=== PATIENT | female | born 1980 | race Caucasian/White ===

== ENCOUNTER 2016-07-16 21:51 | Emergency (ER) | payer BC ==
[2016-07-16 22:05] VITALS: BP 119/83
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
--- NOTE | 2016-07-17 06:08 | CR ---
Chest: 2 views of the chest were obtained. Comparison: No previous chest x-ray. Nodular density is noted within the right mid chest. Lungs otherwise are clear but hyperinflated. Heart size and mediastinum are normal. Minimal scoliosis is noted within the spine. Impression: 1. Lungs are somewhat hyperinflated raising the possibility of asthma versus emphysematous change. Please correlate if patient is a smoker. 2. Nodular density within the right mid chest, noncontrast chest CT recommended to further evaluate. 3. Minimal scoliosis. Nothing acute is appreciated. Diagnostic code #9
--- NOTE | 2016-07-17 09:12 | CR ---
Lumbar spine: AP and lateral views of the lumbar spine were obtained. Comparison: No previous study. Slight posterior disc space narrowing throughout the lumbar spine is seen. Disc spaces otherwise are preserved. Vertebral body heights are maintained. Pedicles as well as transverse and spinous processes are intact. No subluxation or fracture is appreciated. Impression: 1. Minimal posterior disc space narrowing. Nothing acute is appreciated on two-view lumbar spine study. Diagnostic code #2
--- NOTE | 2016-07-17 09:12 | CR ---
Left hand: Four views of the left hand were obtained. Comparison: No previous study. Joint spaces are maintained. No fracture, dislocation or other bony abnormality is seen. Impression: 1. Nothing acute is appreciated on left hand exam. Diagnostic code #1
== END 2016-07-16 23:00 | disposition left against medical advice (07) ==
LOC: JD.ED 21:51
DX: S33.5XXA Sprain of ligaments of lumbar spine, initial encounter (principal); S60.222A Contusion of left hand, initial encounter; S20.212A Contusion of left front wall of thorax, initial encounter; F10.920 Alcohol use, unspecified with intoxication, uncomplicated; Y04.0XXA Assault by unarmed brawl or fight, initial encounter; Z79.899 Other long term (current) drug therapy; F17.210 Nicotine dependence, cigarettes, uncomplicated; Y90.1 Blood alcohol level of 20-39 mg/100 ml
CPT/HCPCS: 36415; 71020; 72100; 73130; 80053; 83690; 83735; 84703; 85025; 85610; 99285; G0480; 99282

== ENCOUNTER 2016-08-03 16:18 | Inpatient (IN) | payer BC ==
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
--- NOTE | 2016-08-03 17:42 | CT ---
Head CT Technique: Multiple axial sections through the brain were obtained. Comparison: No previous intracranial imaging. Findings: Ventricles along with basal cisterns and sulci over the convexities are within normal limits for the patient's age. No abnormal parenchymal densities are seen. No evidence of intracranial hemorrhage. No midline shift or mass effect is seen. Bone window settings were reviewed which shows slight mucosal thickening within the ethmoid sinuses. Other visualized sinuses are clear. No calvarial abnormality is seen. Impression: 1. Minimal sinus findings which are felt to be incidental. 2. Other portions of the noncontrast head CT study appear within normal limits for the patient's age. Diagnostic code #2
--- NOTE | 2016-08-03 20:06 | PCM.HP ---
H&P History of Present Illness - General Date of Service: 08/03/16 Source of Information: Patient, Old Records, Provider, RN Notes Reviewed History Limitations: Reports: Altered Mental Status, Intoxication - History of Present Illness Initial Comments - Free Text/Narative: This is a 36 yo white female with past medical hx/o Anxiety and Depression who was brought in by [facility] due to intoxication and combativeness per family' s request. Per ED notes, she not acting right and family states she is suicidal. Her left her about a week ago and took the kids along with him. Patient carries a hx/o excessive drinking. She also had recurrent falls perhaps due to intoxication. She has right yuki-orbital hematoma. En route to ED patient was combative but started relaxed and cooperate after she received 5mg mg IM haldol from EMS. Her initial work up in ED shows a fairly unremarkable CBC. Her chemistry is significant for Na 147, AG 17.8, BUN 3, Ca+ 8.1, and TSH 0.352. UA is negative for UTI. screening negative. Her UDS is negative. Her DMITRY is 0.45. Head CT scan report reads within normal limits for patient age. Patient is being admitted fro acute ETOH Intoxication and Combativeness. - Related Data Allergies/Adverse Reactions: Allergies Allergy/AdvReac Type Severity Reaction Status Date / Time No Known Allergies Allergy Verified 07/16/16 22:04 Home Medications: Home Meds Escitalopram [Lexapro] 10 mg PO DAILY 08/03/16 [History] Past Medical History Psychiatric History: Reports: Anxiety, Depression, Other (See Below) Social & Family History - Family History Family Medical History: Noncontributory - Tobacco Use Smoking Status *Q: Current Every Day Smoker Years of Tobacco use: 2 Packs/Tins Daily: 0.5 Used Tobacco, but Quit: No - Caffeine Use Caffeine Use: Reports: Coffee - Alcohol Use Days Per Week of Alcohol Use: 7 Number of Drinks Per Day: 16 Total Drinks Per Week: 112 Date of Last Drink: 08/03/16 Time of Last Drink: 12:00 - Recreational Drug Use Recreational Drug Use: No - Living Situation & Occupation Living situation: Reports: Occupation: Unemployed H&P Review of Systems - Review of Systems: Review Of Systems: See Below General: Denies: Fever, Chills, Malaise, Weakness, Fatigue HEENT: Reports: No Symptoms Pulmonary: Denies: Shortness of Breath Cardiovascular: Denies: Chest Pain, Palpitations, Dyspnea on Exertion, Edema Gastrointestinal: Reports: Diarrhea. Denies: Abdominal Pain, Anorexia, Constipation, Decreased Appetite, Nausea Genitourinary: Reports: No Symptoms Musculoskeletal: Reports: No Symptoms Skin: Denies: Cyanosis, Jaundice, Bruising, Rash, Erythema, Lesions Psychiatric: Reports: Depression, Anxiety. Denies: Confusion, Agitation, Hallucinations, Suicidal Ideation, Homicidal Ideation Neurological: Denies: Confusion, Difficulty Walking, Weakness, Gait Disturbance Hematologic/Lymphatic: Reports: No Symptoms Immunologic: Reports: No Symptoms Exam - Exam Exam: See Below - Vital Signs Vital Signs: Last Vital Signs Temp 36.5 C 08/03/16 16:42 Pulse 97 08/03/16 16:42 Resp 20 08/03/16 16:42 BP 109/77 08/03/16 16:42 Pulse Ox 98 08/03/16 16:42 Weight: 54.431 kg - Exam General: Alert, Cooperative HEENT: Conjunctiva Clear, Mucosa Moist & [place], Normal Nasal Septum, Posterior Pharynx Clear, Pupils Equal, Pupils Reactive, Other (mild right periorbital edema and echymosis; vision is intact) Neck: Supple, Trachea Midline, +2 Carotid Pulse wo Bruit Lungs: Clear to Auscultation, Normal Respiratory Effort Cardiovascular: Regular Rate, Regular Rhythm Abdomen: Normal Bowel Sounds, Soft. No: Organomegaly, Tenderness (Female) Exam: Deferred Rectal (Female) Exam: Deferred Back Exam: Normal Inspection, Decreased Range of Motion Extremities: Normal Inspection, Normal Pulses, Clubbing. No: Cyanosis, Calf Tenderness, Edema Peripheral Pulses: 3+: Posterior Tibial (L), Posterior Tibial (R), Dorsalis Pedis (L), Dorsalis Pedis (R) Skin: Warm, Dry, Intact Neuro Extensive - Mental Status: Oriented x3, Normal Cognition, Memory Intact Neuro Extensive - Motor, Sensory, Reflexes: CN II-XII Intact (limited but fairly intac), Abnormal Gait Psychiatric: Normal Affect, Normal Mood. No: Suicidal Ideation, Homicidal Ideation, Withdrawal Symptoms Physical Exam Comments:: Exam limited by intoxication - Patient Data Result Diagrams: 08/04/16 04:56 08/04/16 04:56 *Q Meaningful Use (ADM) - VTE *Q VTE Criteria *Q: - Stroke *Q Stroke Criteria *Q: - AMI *Q AMI Criteria *Q: Problem List Initiated/Reviewed/Updated: Yes Assessment/Plan Comment:: Assessment: Acute ETOH Intoxication - DMITRY 0.45 on admission - [facility] protocol - Ativan/Librium/Haldol/Seroquel/Benadryl - Hydralazine and IVP BB for HR/BP control - Ativan for Abortive Seizure and Withdrawal Symptoms - SAC consult Chronic ETOH Abuse - Hx/o excessive drinkin-24 packs a day - Had more reason to drinks after her children were taken away from her - [facility] protocol - SAC consult Anxiety and Depression - She denies being suicidal or homocidal - On Lexapro- appears to be inconsistently taking it - Psych Tele-consult Low TSH level - Likely has hyperthyroidism - She looks skinny - Will check FT4 - Defer outpatient for further testing Tobacco Dependence - Smokes 1ppd - Nicotine patch daily - Counseled on Smoking Cessation Plan: Admit to ICU IVF, MVI, Folic, Acid and Thiamine [facility] protocol TSH low, will check FT4 Ativan for Abortive Seizure PRN meds for Withdrawal Symptoms Aspiration/Seizure Precautions SW/CM d/c planning SA/Psych consult Code Status: 1
[2016-08-03] MEDS ORDERED: Acetaminophen/HYDROcodone 325-5 MG Tab PO PRN (20:23)
[2016-08-03] MEDS ORDERED: Bisacodyl 5 MG Tab PO PRN (20:23)
[2016-08-03] MEDS ORDERED: HYDROmorphone 1 MG/ML Syringe IVPUSH PRN (20:23)
[2016-08-03] MEDS ORDERED: Docusate Sodium 100 MG Cap PO PRN (20:23)
[2016-08-03] MEDS ORDERED: Ondansetron 4 MG/2 ML SDV IV PRN (20:23)
[2016-08-03] MEDS ORDERED: Promethazine 12.5 MG in Sodium Chloride 0.9% 50 ML IV PRN (20:23)
[2016-08-03] MEDS ORDERED: Albuterol/Ipratropium 3.0-0.5 MG/3 ML Neb Soln NEB PRN (20:23)
[2016-08-03] MEDS ORDERED: Acetaminophen 325 MG Tab PO PRN (20:23)
[2016-08-03] MEDS ORDERED: Polyethylene Glycol 3350 Powder 17 GM Packet PO PRN (20:23)
[2016-08-03] MEDS ORDERED: cloNIDine 0.1 MG Tab PO PRN (20:26)
[2016-08-03] MEDS ORDERED: Haloperidol Lactate 5 MG/ML SDV IM PRN (20:26)
[2016-08-03] MEDS ORDERED: Nicotine 21 MG/24 Hr Patch TRDERM PRN (20:26)
[2016-08-03] MEDS ORDERED: LORazepam 2 MG/ML MDV IVPUSH PRN (20:28)
[2016-08-03] MEDS ORDERED: Metoprolol Tartrate 5 MG/5 ML SDV IVPUSH PRN (20:28)
[2016-08-03] MEDS ORDERED: hydrALAZINE 20 MG/ML SDV IVPUSH PRN (20:28)
[2016-08-03] MEDS ORDERED: diphenhydrAMINE 50 MG/ML SDV IVPUSH PRN (20:30)
[2016-08-03] MEDS: Folic Acid 1 MG Tab PO SCH (20:52)
[2016-08-03] MEDS: QUEtiapine 25 MG Tab PO SCH (20:52)
[2016-08-03] MEDS: Famotidine 20 MG Tab PO SCH (20:52)
[2016-08-03] MEDS: chlordiazePOXIDE 25 MG Cap PO PRN (20:52)
[2016-08-03] MEDS: Thiamine 100 MG Tab PO SCH (20:52)
[2016-08-03] MEDS: Sodium Chloride 0.9% 1,000 ML IV SCH (20:55)
[2016-08-03] MEDS ORDERED: Multivitamins,Therapeutic Tab PO ONE (21:00)
[2016-08-03] MEDS: LORazepam 2 MG/ML MDV IVPUSH PRN (23:50)
[2016-08-04] MEDS: Sodium Chloride 0.9% 1,000 ML IV SCH ×3 (04:00→20:16)
--- NOTE | 2016-08-04 08:05 | PCM.PN ---
- General Info Date of Service: 08/04/16 Functional Status: Reports: pain controlled, tolerating diet, urinating. Denies : new symptoms - Review of Systems General: Denies: Fever, Weakness, Fatigue, Malaise HEENT: Reports: no symptoms Pulmonary: Denies: shortness of breath Cardiovascular: Denies: Chest Pain Gastrointestinal: Denies: Abdominal pain, Nausea, Vomiting Genitourinary: Reports: no symptoms Musculoskeletal: Reports: no symptoms Skin: Reports: bruising (around right eye) Neurological: Denies: Confusion, Numbness, Seizure, Tingling, Tremors, Difficulty Walking, Weakness Psychiatric: Denies: confusion, depression, anxiety, agitation, hallucinations, suicidal ideation Systems Review Comment:: No overnight or acute issues. CIWA score is 0-3 - Patient Data Vitals - most recent: Last Vital Signs Temp 36.6 C 08/04/16 04:00 Pulse 83 08/04/16 00:02 Resp 21 H 08/04/16 04:00 BP 88/53 L 08/04/16 04:00 Pulse Ox 92 L 08/04/16 00:02 Weight - most recent: 50.984 kg I&O - last 24 hours: Intake & Output 08/03/16 08/04/16 08/04/16 22:59 06:59 14:59 Intake Total 1500 1306 Output Total 1000 Balance 1500 1306 -1000 Lab Results last 24 hrs: Laboratory Results - last 24 hr 08/04/16 08/04/16 Range/Units 04:56 04:56 WBC 7.31 (3.98-10.04) K/mm3 RBC 4.22 (3.98-5.22) M/mm3 Hgb 13.2 (11.2-15.7) gm/L Hct 41.1 (34.1-44.9) % MCV 97.4 H (79.4-94.8) fl MCH 31.3 (25.6-32.2) pg MCHC 32.1 L (32.2-35.5) g/dl RDW Std Deviation 46.0 (36.4-46.3) fL Plt Count 140 L (182-369) K/mm3 MPV 9.5 (9.4-12.3) fl Neut % (Auto) 66.7 (34.0-71.1) % Lymph % (Auto) 26.8 (19.3-51.7) % [place] % (Auto) 4.8 (4.7-12.5) % Eos % (Auto) 1.0 (0.7-5.8) Baso % (Auto) 0.4 (0.1-1.2) % Neut # (Auto) 4.88 (1.56-6.13) K/mm3 Lymph # (Auto) 1.96 (1.18-3.74) K/mm3 [place] # (Auto) 0.35 (0.24-0.36) K/mm3 Eos # (Auto) 0.07 (0.04-0.36) K/mm3 Baso # (Auto) 0.03 (0.01-0.08) K/mm3 Sodium 142 (136-145) mEq/L Potassium 3.6 (3.5-5.1) mEq/L Chloride 105 (98-107) mEq/L Carbon Dioxide 22 (21-32) mEq/L Anion Gap 18.6 H (5-15) BUN 13 (7-18) mg/dL Creatinine 0.6 (0.55-1.02) mg/dL Est Cr Clr Drug Dosing 104.33 mL/min Estimated GFR (MDRD) > 60 (>60) mL/min BUN/Creatinine Ratio 21.7 H (14-18) Glucose 50 L (74-106) mg/dL Calcium 7.7 L (8.5-10.1) mg/dL Magnesium 1.8 (1.8-2.4) mg/dl Med Orders - Current: Current Medications Acetaminophen (Tylenol) 650 mg PO Q4H PRN PRN Reason: Pain (Mild 1-3)/fever Hydrocodone Bitart/Acetaminophen ([place] 325-5 Mg) 1 tab PO Q4H PRN PRN Reason: Pain (moderate 4-6) Albuterol/Ipratropium (Duoneb 3.0-0.5 Mg/3 Ml) 3 ml NEB Q4H PRN PRN Reason: Shortness Of Breath/wheezing Bisacodyl (Dulcolax) 5 mg PO DAILY PRN PRN Reason: Constipation Chlordiazepoxide HCl (Librium) 25 mg PO Q8H PRN PRN Reason: Withdrawal Symptoms Last Admin: 08/03/16 20:52 Dose: 25 mg Citalopram Hydrobromide (Celexa) 20 mg PO DAILY [facility] Clonidine HCl (Catapres) 0.1 mg PO Q4H PRN PRN Reason: Agitation Last Admin: 08/03/16 20:52 Dose: 0.1 mg Diphenhydramine HCl (Benadryl) 25 mg IVPUSH BEDTIME PRN PRN Reason: Insomnia Last Admin: 08/03/16 20:53 Dose: 25 mg Docusate Sodium (Colace) 100 mg PO BID PRN PRN Reason: Constipation Enoxaparin Sodium (Lovenox) 30 mg SUBCUT DAILY [facility] Famotidine (Pepcid) 20 mg PO Q12H [facility] Last Admin: 08/03/16 20:52 Dose: 20 mg Folic Acid (Folic Acid) 1 mg PO DAILY [facility] Stop: 08/05/16 09:01 Last Admin: 08/03/16 20:52 Dose: 1 mg Haloperidol Lactate (Haldol) 2 mg IM Q4H PRN PRN Reason: Other Hydralazine HCl (Apresoline) 20 mg IVPUSH Q4H PRN PRN Reason: Hypertension Hydromorphone HCl (Dilaudid) 0.25 mg IVPUSH Q2H PRN PRN Reason: Pain (severe 7-10) Promethazine HCl 12.5 mg/ (Sodium Chloride) 50.5 mls @ 100 mls/hr IV Q6H PRN PRN Reason: Nausea/Vomiting Sodium Chloride (Normal Saline) 1,000 mls @ 125 mls/hr IV ASDIRECTED [facility] Last Admin: 08/04/16 04:00 Dose: 125 mls/hr Lorazepam (Ativan) 2 mg IVPUSH Q4H PRN PRN Reason: Seizures Lorazepam (Ativan) 0 mg IVPUSH Q4H PRN; Protocol PRN Reason: Withdrawal Symptoms Last Admin: 08/03/16 23:50 Dose: 1 mg Magnesium Sulfate (Pharmacy To Dose - Magnesium Replacement) 1 dose .XX ASDIRECTED [facility] Metoprolol Tartrate (Lopressor) 5 mg IVPUSH Q4H PRN PRN Reason: Tachycardia Nicotine (Habitrol) 21 mg TRDERM DAILY PRN PRN Reason: Other Ondansetron HCl (Zofran) 4 mg IV Q6H PRN PRN Reason: Nausea/Vomiting Polyethylene Glycol (Miralax) 17 gm PO DAILY PRN PRN Reason: Constipation Potassium Chloride (Pharmacy To Dose - Potassium Replacement) 1 dose .XX ASDIRECTED [facility] Quetiapine Fumarate (Seroquel) 25 mg PO BID [facility] Last Admin: 08/03/16 20:52 Dose: 25 mg Senna/Docusate Sodium (Senna Plus) 1 tab PO BID PRN PRN Reason: Constipation Thiamine HCl (Vitamin B-1) 100 mg PO DAILY [facility] Last Admin: 08/03/16 20:52 Dose: 100 mg Discontinued Medications Multivitamins (Thera) 1 each PO ONETIME ONE Stop: 08/03/16 21:01 Last Admin: 08/03/16 20:52 Dose: 1 each - Exam General: alert, oriented, cooperative, no acute distress HEENT: Pupils equal, Pupils reactive, EOMI, Mucous membr. moist/pink Neck: supple, trachea midline, no JVD Lungs: Clear to auscultation, Normal respiratory effort Cardiovascular: Regular Rate, Regular Rhythm Abdomen: bowel sounds present, soft, no tenderness, no distension (Female) Exam: Deferred Back Exam: Normal Inspection, Decreased Range of Motion Extremities: no edema, normal pulses, no tenderness/swelling, no clubbing, no cyanosis, no calf tenderness Peripheral Pulses: 3+: Posterior Tibial (L), Posterior Tibial (R), Dorsalis Pedis (L), Dorsalis Pedis (R) Skin: warm, dry, intact Neurological: no new focal deficit Psy/Mental Status: alert, normal affect, normal mood - Problem List Review Problem List Initiated/Reviewed/Updated: Yes - My Orders Last 24 Hours: My Active Orders 08/03/16 20:23 Height and Weight [RC] 04 Intake and Output [RC] 04,16 Oxygen Therapy [RC] PRN Up With Assistance [RC] ASDIRECTED Up ad Allie [RC] ASDIRECTED VTE/DVT Education [RC] PER UNIT ROUTINE Vital Signs [RC] Q4HR Acetaminophen [Tylenol] 650 mg PO Q4H PRN Acetaminophen/HYDROcodone [[place] 325-5 MG] 1 tab PO Q4H PRN Albuterol/Ipratropium [DuoNeb 3.0-0.5 MG/3 ML] 3 ml NEB Q4H PRN Bisacodyl [Dulcolax] 5 mg PO DAILY PRN Docusate Sodium [Colace] 100 mg PO BID PRN Docusate Sodium/Sennosides [Senna Plus] 1 tab PO BID PRN HYDROmorphone [Dilaudid] 0.25 mg IVPUSH Q2H PRN Ondansetron [Zofran] 4 mg IV Q6H PRN Polyethylene Glycol 3350 [MiraLAX] 17 gm PO DAILY PRN Promethazine [Phenergan] 12.5 mg Sodium Chloride 0.9% [Normal Saline] 50 ml IV Q6H Resuscitation Status Routine 08/03/16 20:24 RT Aerosol Therapy [RC] ASDIRECTED 08/03/16 20:25 Notify Provider Consults [RC] ASDIRECTED Consult to Case Management [CONS] Routine Consult to Physician [CONS] Routine Consult to Adoption Services Manager [CONS] Routine Consult to Spiritual Care [CONS] Routine 08/03/16 20:26 CIWAA Assessment [RC] Q15M CIWAA Assessment [RC] Q1HR CIWAA Assessment [RC] Q30M CIWAA Assessment [RC] Q4H Notify Provider [RC] PRN Haloperidol Lactate [Haldol] 2 mg IM Q4H PRN Nicotine [Habitrol] 21 mg TRDERM DAILY PRN chlordiazePOXIDE [Librium] 25 mg PO Q8H PRN cloNIDine [Catapres] 0.1 mg PO Q4H PRN 08/03/16 20:28 LORazepam [Ativan] 2 mg IVPUSH Q4H PRN Metoprolol Tartrate [Lopressor] 5 mg IVPUSH Q4H PRN hydrALAZINE [Apresoline] 20 mg IVPUSH Q4H PRN 08/03/16 20:29 LORazepam [Ativan] See Protocol IVPUSH Q4H PRN 08/03/16 20:30 Magnesium Rep Pharmacy to Dose [Pharmacy to Dose - Magnesium Replacement] 1 dose .XX ASDIRECTED Potassium Rep Pharmacy to Dose [Pharmacy to Dose - Potassium Replacement] 1 dose .XX ASDIRECTED Sodium Chloride 0.9% [Normal Saline] 1,000 ml IV ASDIRECTED diphenhydrAMINE [Benadryl] 25 mg IVPUSH BEDTIME PRN 08/03/16 21:00 Famotidine [Pepcid] 20 mg PO Q12H Folic Acid 1 mg PO DAILY [facility]tiapine [SEROquel] 25 mg PO BID Thiamine [Vitamin B-1] 100 mg PO DAILY 08/03/16 21:27 Seizure Precautions [OM.PC] Routine 08/03/16 Dinner Regular Diet [DIET] 08/04/16 09:00 Citalopram [Celexa] 20 mg PO DAILY Enoxaparin [Lovenox] 30 mg SUBCUT DAILY 08/05/16 05:11 BASIC METABOLIC PANEL,BMP [CHEM] AM CBC WITH AUTO DIFF [HEME] AM MAGNESIUM [CHEM] AM 08/06/16 05:11 BASIC METABOLIC PANEL,BMP [CHEM] AM CBC WITH AUTO DIFF [HEME] AM MAGNESIUM [CHEM] AM 08/07/16 05:11 BASIC METABOLIC PANEL,BMP [CHEM] AM CBC WITH AUTO DIFF [HEME] AM MAGNESIUM [CHEM] AM - Plan Plan:: Assessment: Acute ETOH Intoxication - DMITRY 0.45 on admission - [facility] protocol: CIWA score si 0-3 - Ativan/Librium/Haldol/Seroquel/Benadryl - Hydralazine and IVP BB for HR/BP control - Ativan for Abortive Seizure and Withdrawal Symptoms Chronic ETOH Abuse - Hx/o excessive drinkin-24 packs a day - Had more reason to drinks after her children were taken away from her - [facility] protocol - Awaiting SAC input Anxiety and Depression - She denies being suicidal or homocidal - On Lexapro- appears to be inconsistently taking it - Awaiting Psych Tele input Low TSH level - Likely has hyperthyroidism - She looks skinny - FT4 is pending - Defer outpatient for further testing Tobacco Dependence - Smokes 1ppd - Nicotine patch daily - Counseled on Smoking Cessation Plan: She is clinically stable and looks much better Continue IVF, MVI, Folic, Acid and Thiamine CIWA protocol FT4 level pending Ativan for Abortive Seizure PRN meds for Withdrawal Symptoms Aspiration/Seizure Precautions SW/CM d/c planning Awaiting SA/Psych consult Code Status: 1
[2016-08-04] MEDS: chlordiazePOXIDE 25 MG Cap PO PRN (08:41)
[2016-08-04] MEDS: Folic Acid 1 MG Tab PO SCH (08:41)
[2016-08-04] MEDS: Citalopram 20 MG Tab PO SCH (08:41)
[2016-08-04] MEDS: QUEtiapine 25 MG Tab PO SCH ×2 (08:41→20:58)
[2016-08-04] MEDS: Thiamine 100 MG Tab PO SCH (08:41)
[2016-08-04] MEDS: Famotidine 20 MG Tab PO SCH ×2 (08:41→20:57)
[2016-08-04] MEDS: Enoxaparin 30 MG/0.3 ML Syringe SUBCUT SCH (08:42)
[2016-08-04] MEDS ORDERED: HYDROmorphone 0.5 MG/0.5 ML Syringe IVPUSH PRN (10:02)
[2016-08-04] MEDS: Magnesium Oxide 400 MG Tab PO SCH ×2 (11:15→20:59)
[2016-08-04] MEDS ORDERED: Morphine 2 MG/ML Syringe IVPUSH ONE (15:15)
[2016-08-04] MEDS: LORazepam 2 MG/ML MDV IVPUSH PRN (22:50)
[2016-08-05] MEDS: chlordiazePOXIDE 25 MG Cap PO PRN (08:15)
[2016-08-05] MEDS: Thiamine 100 MG Tab PO SCH (08:15)
[2016-08-05] MEDS: Citalopram 20 MG Tab PO SCH (08:15)
[2016-08-05] MEDS: Enoxaparin 30 MG/0.3 ML Syringe SUBCUT SCH (08:15)
[2016-08-05] MEDS: Famotidine 20 MG Tab PO SCH ×2 (08:15→21:40)
[2016-08-05] MEDS: Folic Acid 1 MG Tab PO SCH (08:15)
[2016-08-05] MEDS: QUEtiapine 25 MG Tab PO SCH ×2 (08:15→21:41)
[2016-08-05] MEDS ORDERED: Magnesium Sulfate/Water 2 GM in Premix Bag 1 BAG IV ONE (09:33)
--- NOTE | 2016-08-05 09:35 | PCM.PN ---
- General Info Date of Service: 08/05/16 Functional Status: Reports: tolerating diet (advanced to clear liquids), ambulating, urinating - Review of Systems General: Reports: No Symptoms HEENT: Reports: no symptoms Pulmonary: Reports: no symptoms Cardiovascular: Reports: No Symptoms Gastrointestinal: Reports: No symptoms Genitourinary: Reports: no symptoms Musculoskeletal: Reports: no symptoms Skin: Reports: no symptoms Neurological: Reports: No Symptoms Psychiatric: Reports: no symptoms - Patient Data Vitals - most recent: Last Vital Signs Temp 36.6 C 08/05/16 08:00 Pulse 65 08/05/16 07:00 Resp 18 08/05/16 08:00 BP 122/93 H 08/05/16 08:00 Pulse Ox 99 08/05/16 08:00 Weight - most recent: 52.34 kg I&O - last 24 hours: Intake & Output 08/04/16 08/05/16 08/05/16 22:59 06:59 14:59 Intake Total 420 2144 600 Balance 420 2144 600 Lab Results last 24 hrs: Laboratory Results - last 24 hr 08/04/16 08/05/16 08/05/16 Range/Units 04:56 04:36 04:36 WBC 4.00 (3.98-10.04) K/mm3 RBC 3.57 L (3.98-5.22) M/mm3 Hgb 11.1 L (11.2-15.7) gm/L Hct 35.0 (34.1-44.9) % MCV 98.0 H (79.4-94.8) fl MCH 31.1 (25.6-32.2) pg MCHC 31.7 L (32.2-35.5) g/dl RDW Std Deviation 45.1 (36.4-46.3) fL Plt Count 113 L (182-369) K/mm3 MPV 9.4 (9.4-12.3) fl Neut % (Auto) 51.1 (34.0-71.1) % Lymph % (Auto) 36.3 (19.3-51.7) % [place] % (Auto) 8.8 (4.7-12.5) % Eos % (Auto) 3.0 (0.7-5.8) Baso % (Auto) 0.5 (0.1-1.2) % Neut # (Auto) 2.05 (1.56-6.13) K/mm3 Lymph # (Auto) 1.45 (1.18-3.74) K/mm3 [place] # (Auto) 0.35 (0.24-0.36) K/mm3 Eos # (Auto) 0.12 (0.04-0.36) K/mm3 Baso # (Auto) 0.02 (0.01-0.08) K/mm3 Sodium 141 (136-145) mEq/L Potassium 4.0 (3.5-5.1) mEq/L Chloride 107 (98-107) mEq/L Carbon Dioxide 26 (21-32) mEq/L Anion Gap 12.0 (5-15) BUN 8 (7-18) mg/dL Creatinine 0.5 L (0.55-1.02) mg/dL Est Cr Clr Drug Dosing 128.52 mL/min Estimated GFR (MDRD) > 60 (>60) mL/min BUN/Creatinine Ratio 16.0 (14-18) Glucose 90 (74-106) mg/dL Calcium 8.1 L (8.5-10.1) mg/dL Magnesium 1.7 L (1.8-2.4) mg/dl Free T4 0.89 (0.76-1.46) ng/dL Med Orders - Current: Current Medications Acetaminophen (Tylenol) 650 mg PO Q4H PRN PRN Reason: Pain (Mild 1-3)/fever Hydrocodone Bitart/Acetaminophen ([place] 325-5 Mg) 1 tab PO Q4H PRN PRN Reason: Pain (moderate 4-6) Albuterol/Ipratropium (Duoneb 3.0-0.5 Mg/3 Ml) 3 ml NEB Q4H PRN PRN Reason: Shortness Of Breath/wheezing Bisacodyl (Dulcolax) 5 mg PO DAILY PRN PRN Reason: Constipation Chlordiazepoxide HCl (Librium) 25 mg PO Q8H PRN PRN Reason: Withdrawal Symptoms Last Admin: 08/05/16 08:15 Dose: 25 mg Citalopram Hydrobromide (Celexa) 20 mg PO DAILY [facility] Last Admin: 08/05/16 08:15 Dose: 20 mg Clonidine HCl (Catapres) 0.1 mg PO Q4H PRN PRN Reason: Agitation Last Admin: 08/03/16 20:52 Dose: 0.1 mg Diphenhydramine HCl (Benadryl) 25 mg IVPUSH BEDTIME PRN PRN Reason: Insomnia Last Admin: 08/03/16 20:53 Dose: 25 mg Docusate Sodium (Colace) 100 mg PO BID PRN PRN Reason: Constipation Enoxaparin Sodium (Lovenox) 40 mg SUBCUT DAILY [facility] Famotidine (Pepcid) 20 mg PO Q12H [facility] Last Admin: 08/05/16 08:15 Dose: 20 mg Haloperidol Lactate (Haldol) 2 mg IM Q4H PRN PRN Reason: Other Hydralazine HCl (Apresoline) 20 mg IVPUSH Q4H PRN PRN Reason: Hypertension Hydromorphone HCl (Dilaudid) 0.25 mg IVPUSH Q2H PRN PRN Reason: Pain (severe 7-10) Promethazine HCl 12.5 mg/ (Sodium Chloride) 50.5 mls @ 100 mls/hr IV Q6H PRN PRN Reason: Nausea/Vomiting Sodium Chloride (Normal Saline) 1,000 mls @ 125 mls/hr IV ASDIRECTED [facility] Last Admin: 08/04/16 20:16 Dose: 125 mls/hr Magnesium Sulfate 2 gm/ Premix 50 mls @ 25 mls/hr IV ONETIME ONE Stop: 08/05/16 11:32 Lorazepam (Ativan) 2 mg IVPUSH Q4H PRN PRN Reason: Seizures Lorazepam (Ativan) 0 mg IVPUSH Q4H PRN; Protocol PRN Reason: Withdrawal Symptoms Last Admin: 08/04/16 22:50 Dose: 2 mg Magnesium Sulfate (Pharmacy To Dose - Magnesium Replacement) 0 dose .XX ASDIRECTED PRN PRN Reason: RX TO MONITOR MAG LEVELS Metoprolol Tartrate (Lopressor) 5 mg IVPUSH Q4H PRN PRN Reason: Tachycardia Nicotine (Habitrol) 21 mg TRDERM DAILY PRN PRN Reason: Other Ondansetron HCl (Zofran) 4 mg IV Q6H PRN PRN Reason: Nausea/Vomiting Polyethylene Glycol (Miralax) 17 gm PO DAILY PRN PRN Reason: Constipation Potassium Chloride (Pharmacy To Dose - Potassium Replacement) 0 dose .XX ASDIRECTED PRN PRN Reason: RX TO MONITOR K LEVELS Quetiapine Fumarate (Seroquel) 25 mg PO BID [facility] Last Admin: 08/05/16 08:15 Dose: 25 mg Senna/Docusate Sodium (Senna Plus) 1 tab PO BID PRN PRN Reason: Constipation Thiamine HCl (Vitamin B-1) 100 mg PO DAILY [facility] Last Admin: 08/05/16 08:15 Dose: 100 mg Discontinued Medications Enoxaparin Sodium (Lovenox) 30 mg SUBCUT DAILY [facility] Last Admin: 08/05/16 08:15 Dose: 30 mg Folic Acid (Folic Acid) 1 mg PO DAILY [facility] Stop: 08/05/16 09:01 Last Admin: 08/05/16 08:15 Dose: 1 mg Hydromorphone HCl (Dilaudid) 0.25 mg IVPUSH Q2H PRN PRN Reason: Pain (severe 7-10) Magnesium Oxide (Magnesium Oxide) 400 mg PO BID@1200,2100 [facility] Stop: 08/04/16 21:01 Last Admin: 08/04/16 20:59 Dose: 400 mg Multivitamins (Thera) 1 each PO ONETIME ONE Stop: 08/03/16 21:01 Last Admin: 08/03/16 20:52 Dose: 1 each - Exam Quality Assessment: DVT prophylaxis General: alert, oriented, no acute distress HEENT: Pupils equal, Pupils reactive, EOMI Neck: supple, trachea midline Lungs: Normal respiratory effort Cardiovascular: Regular Rate, Tachycardia Abdomen: bowel sounds present, soft, no tenderness, no distension (Female) Exam: Deferred Back Exam: Normal Inspection Extremities: normal pulses Skin: warm Neurological: no new focal deficit Psy/Mental Status: alert, anxious - Problem List Review Problem List Initiated/Reviewed/Updated: Yes - My Orders Last 24 Hours: My Active Orders 08/05/16 09:33 Magnesium Sulfate/Water [Magnesium Sulfate 2 GM in Water 50 ML] 2 gm Premix Bag 1 bag IV ONETIME - Plan Plan:: Assessment: Acute ETOH Intoxication - DMITRY 0.45 on admission - CIWA protocol: CIWA score si 0-3 - Ativan/Librium/Haldol/Seroquel/Benadryl - Hydralazine and IVP BB for HR/BP control - Ativan for Abortive Seizure and Withdrawal Symptoms Chronic ETOH Abuse - Hx/o excessive drinkin-24 packs a day - Had more reason to drinks after her children were taken away from her - [facility] protocol - SHANNON and JOSE working on placement pre holiday weekend. Spoke with at bedside and later before he left. He requested that Deirdre Askew speak with him regarding his spouse; he is concerned about her DC and prefers OP therapy. and spouse both expect to meet an artificial DC date , Saturday-August 07, 2016. The patient has a [facility] meeting that she wants to attend. Explained that the plan is ongoing for placement, IP is the preferred route; the patient is at a risk of treatment failure and may harm herself or others. Anxiety and Depression - She denies being suicidal or homocidal; has had recent unsuccessful therapy. - On Lexapro- appears to be inconsistently taking it - Psych Tele input Low TSH level - Likely has hyperthyroidism - She looks skinny - FT4 is pending - Defer outpatient for further testing Tobacco Dependence - Smokes 1ppd - Nicotine patch daily - Counseled on Smoking Cessation Plan: She is clinically stable and looks much better; was moved to [place] telemetry Continue IVF, MVI, Folic, Acid and Thiamine [facility] protocol FT4 level pending Ativan for Abortive Seizure PRN meds for Withdrawal Symptoms Aspiration/Seizure Precautions SW/CM d/c planning Awaiting SA/Psych consult Code Status: 1
[2016-08-05] MEDS: Enoxaparin 40 MG/0.4 ML Syringe SUBCUT SCH (10:10)
--- NOTE | 2016-08-05 10:51 | CONS ---
CONSULTING PHYSICIAN: Ildefonso Dahl MD DATE OF CONSULTATION: 08/04/2016 This is a 60-minute inpatient clinical event. IDENTIFICATION: The patient is a 36-year-old female, who was admitted to the inpatient medical intensive care unit at [facility] in [place], [place]. She was admitted on 08/03/2016. She is seen for psychiatric evaluation today. CHIEF COMPLAINT: "I was on an alcoholic rampage." HISTORY OF PRESENT ILLNESS: The patient is a 36-year-old female, who reports that she has been drinking heavily and it got to the point where she needed to be hospitalized. She states that she "does not remember" how much she was drinking, but she notes that "I am looking to stop drinking" going forward. She states her drinking alcohol has been a problem "for about the last 5 years." She does report two chemical dependency treatments in the past and she states her longest sobriety from using alcohol was for "about 4 months back in 2014 after treatment." She does state that she is depressed at this point in time. She notes that she has been on Wellbutrin in the past and that this medication helped. She states that she has been on Prozac in the past and she had a very bad reaction from this medication. Currently, according to staff, the patient is on Seroquel and Celexa, but the patient is not recollecting that she is on these medications at this point in time. She denies that she is suicidal or homicidal. She denies any psychotic, delusional, or paranoid symptoms complicating the clinical picture. She denies any illicit substances complicating her clinical picture. She does want to go to treatment at this point in time once she is medically stable. MEDICATIONS: At the time of presentation. 1. Seroquel 25 mg b.i.d. 2. Celexa 30 mg daily. 3. Librium. 4. CIWA protocol. ALLERGIES: No known drug allergies. PAST MEDICAL HISTORY: The patient denies. REVIEW OF SYSTEMS: Negative at this point in time for any acute difficulties or complications currently with her GI, , pulmonary, cardiac, endocrine, blood, immune, skin, musculoskeletal, or nervous systems. FAMILY, PSYCHIATRIC, AND CD HISTORY: The patient reports mother had a history of alcoholism and she does state her drinks pretty heavily as well. PAST PSYCHIATRIC AND CD HISTORY: The patient reports one psychiatric hospitalization in 2015, two chemical dependency treatments in the past at [facility]. Again, longest sobriety is for 4 months. She is not sure how much she is drinking, but she does state it is pretty heavy. Denies any previous suicide attempts or self-injurious behaviors. Has a past psychiatric diagnosis of anxiety and depression. PAST PSYCHIATRIC MEDICATION HISTORY: Includes Wellbutrin, which helped her; Prozac, which the patient had a bad reaction from. She has gone to in the past. Dr. Paradise Galeas is her primary provider out at [facility]. SOCIAL HISTORY: The patient was born in [place], raised in [place], [place] and in [facility]. She currently lives in [place], [place] with her family. She has been x1 for 10 years. She has 2 children from the marriage. 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 She has been living in [place] with her family for about 5 years. Denies any prior service or any current legal difficulties. She is Taoist in terms of her tisha formation. MENTAL STATUS EXAMINATION: The patient is a 36-year-old white female in no apparent distress. Speech is of regular rate and rhythm. The patient is cognitively oriented x3. Psychomotor activity is within normal limits. There is no abnormal motor movements or tics observed. Gait and station are not observed. This patient is lying in the bed during the inpatient consult. Mood is depressed. Affect is consistent with stated mood, restrictive but cooperative overall for the purposes of the inpatient psychiatric consult. Tired-appearing. There is no behavioral or stated evidence of acute suicidal or homicidal ideation. No acute psychotic, delusional, or paranoid symptoms. Thought processes are organized. There are no acute manic symptoms or loose associations evident. Judgment insight appear unimpaired at this point in time. Motivation for help appears fair to good. VITAL SIGNS: 115/70, 63, 18, and 98.6 degrees. IMPRESSION: [place] I. 1. Alcohol dependence, F10.20. 2. Major depressive disorder, recurrent, F33.2. [place] II: None. [place] III: Withdrawal symptoms with complication of alcohol dependence. [place] IV: Severe. [place] V: 55-60. PLAN: 1. Sobriety. 2. Folic acid supplementation. 3. Thiamine supplementation. 4. Continue Librium as prescribed in dose. 5. Continue CIWA protocol. 6. Continue Celexa 20-30 mg daily as prescribed. 7. Continue Seroquel 25 mg b.i.d. 8. AA rep to visit the patient while the patient remains on inpatient medical unit. 9. Pastoral guidance. 10.Recommend transfer to chemical dependency treatment when medically stable. 11.We will consider restarting Wellbutrin medication on behalf of the patient. Once the patient is through withdrawal and medically stabilized if depression symptoms persist. 12.We will continue to follow up with the patient on an as needed basis while she remains on the inpatient medical unit going forward. 13.We will follow up with the patient sooner if any complications in the interim. 14.Crisis plan is in place. GASPER /[id number]
[2016-08-05] MEDS: chlordiazePOXIDE 25 MG Cap PO SCH ×2 (16:09→23:47)
[2016-08-05] MEDS: LORazepam 2 MG/ML MDV IVPUSH PRN (19:32)
[2016-08-05] MEDS: cloNIDine 0.1 MG Tab PO SCH (21:40)
[2016-08-06] MEDS: LORazepam 2 MG/ML MDV IVPUSH PRN (02:59)
[2016-08-06] MEDS: chlordiazePOXIDE 25 MG Cap PO SCH ×2 (07:03→15:58)
--- NOTE | 2016-08-06 08:56 | CONS ---
CONSULTING PHYSICIAN: Padilla Askew LAC DATE OF CONSULTATION: 08/06/2016 TIME: 08:18 a.m. Received a request from Dr. Trujillo at approximately 05:15 p.m. on 08/05/2016, to contact the patient's as he was wanting to speak with me regarding treatment centers for his . I called the patient's at approximately 07:20 p.m. He was concerned about how the patient would react to the commitment and wanted to know if we had secured a bed for her and at which treatment center. He was informed that we were unable to secure a bed at a private facility on a Saturday and that we will try again tomorrow, Saturday08/06/2016, to find an appropriate facility. He was also reminded that this is [facility] and that many treatment centers are running at bare minimum staffing. He stated that he would prefer an outpatient commitment as he was concerned that his would become combative and possibly suicidal if she was committed to a residential treatment center that she was not agreeable to. The patient's was assured that we would do everything possible to secure an appropriate facility for his and that an outpatient commitment could be considered on an aftercare basis after she completed a residential treatment program. The patient's was counseled on the fragile and emotional state that his was currently experiencing and that a residential treatment center at this point is the optimal safe environment that the patient could be discharged to, as the threat of continued alcohol use and suicidal ideation is still present. I will discuss this phone call with JEANETTE Pitt, and Dr. Trujillo on 08/06/2016, so that we can coordinate a safe discharge plan for the patient. MMODAL /[id number]
[2016-08-06] MEDS: Citalopram 20 MG Tab PO SCH (09:57)
[2016-08-06] MEDS: QUEtiapine 25 MG Tab PO SCH ×2 (09:57→20:35)
[2016-08-06] MEDS: Famotidine 20 MG Tab PO SCH ×2 (09:57→20:35)
[2016-08-06] MEDS: Enoxaparin 40 MG/0.4 ML Syringe SUBCUT SCH (09:57)
[2016-08-06] MEDS: cloNIDine 0.1 MG Tab PO SCH ×2 (09:57→20:35)
[2016-08-06] MEDS: Thiamine 100 MG Tab PO SCH (09:57)
[2016-08-06] MEDS ORDERED: Magnesium Sulfate/Water 2 GM in Premix Bag 1 BAG IV ONE (10:44)
--- NOTE | 2016-08-06 12:40 | CR ---
Left wrist: Three views of the left wrist were obtained. Comparison: No previous wrist exam. Joint spaces within the wrist are preserved. Incidental small cyst identified within the lunate bone. No fracture, dislocation or other bony abnormality is identified. Impression: 1. No acute abnormality is identified on left wrist exam. Diagnostic code #1
--- NOTE | 2016-08-06 12:40 | CR ---
Left hand: Three views of the left hand were obtained. Comparison: Previous left hand exam of 07/16/16. Joint spaces are preserved. No fracture, dislocation or other bony abnormality is seen. Impression: 1. No abnormality is identified on left hand study. No appreciable change is seen from prior left hand exam. Diagnostic code #1
--- NOTE | 2016-08-06 12:40 | PCM.PN ---
- General Info Date of Service: 08/06/16 Subjective Update: Had a FELICIANO earlier which has resolved. Functional Status: Reports: pain controlled, tolerating diet, ambulating, urinating - Review of Systems General: Reports: No Symptoms HEENT: Reports: no symptoms Pulmonary: Reports: no symptoms Cardiovascular: Reports: No Symptoms Gastrointestinal: Reports: No symptoms Genitourinary: Reports: no symptoms Musculoskeletal: Reports: no symptoms Skin: Reports: no symptoms Neurological: Reports: No Symptoms Psychiatric: Reports: no symptoms - Patient Data Vitals - most recent: Last Vital Signs Temp 36.7 C 08/06/16 07:26 Pulse 65 08/06/16 07:26 Resp 16 08/06/16 07:26 BP 124/56 L 08/06/16 09:57 Pulse Ox 97 08/06/16 07:26 Weight - most recent: 57.198 kg I&O - last 24 hours: Intake & Output 08/05/16 08/06/16 08/06/16 22:59 06:59 14:59 Intake Total 240 3100 330 Output Total 2200 Balance 240 900 330 Lab Results last 24 hrs: Laboratory Results - last 24 hr 08/06/16 08/06/16 Range/Units 05:50 05:50 WBC 4.02 (3.98-10.04) K/mm3 RBC 3.55 L (3.98-5.22) M/mm3 Hgb 11.1 L (11.2-15.7) gm/L Hct 34.7 (34.1-44.9) % MCV 97.7 H (79.4-94.8) fl MCH 31.3 (25.6-32.2) pg MCHC 32.0 L (32.2-35.5) g/dl RDW Std Deviation 45.1 (36.4-46.3) fL Plt Count 102 L (182-369) K/mm3 MPV 9.7 (9.4-12.3) fl Neut % (Auto) 49.1 (34.0-71.1) % Lymph % (Auto) 36.1 (19.3-51.7) % Greenlee % (Auto) 10.2 (4.7-12.5) % Eos % (Auto) 3.7 (0.7-5.8) Baso % (Auto) 0.7 (0.1-1.2) % Neut # (Auto) 1.97 (1.56-6.13) K/mm3 Lymph # (Auto) 1.45 (1.18-3.74) K/mm3 Greenlee # (Auto) 0.41 H (0.24-0.36) K/mm3 Eos # (Auto) 0.15 (0.04-0.36) K/mm3 Baso # (Auto) 0.03 (0.01-0.08) K/mm3 Sodium 142 (136-145) mEq/L Potassium 3.6 (3.5-5.1) mEq/L Chloride 109 H (98-107) mEq/L Carbon Dioxide 28 (21-32) mEq/L Anion Gap 8.6 (5-15) BUN 5 L (7-18) mg/dL Creatinine 0.5 L (0.55-1.02) mg/dL Est Cr Clr Drug Dosing 140.45 mL/min Estimated GFR (MDRD) > 60 (>60) mL/min BUN/Creatinine Ratio 10.0 L (14-18) Glucose 93 (74-106) mg/dL Calcium 7.9 L (8.5-10.1) mg/dL Magnesium 1.7 L (1.8-2.4) mg/dl Med Orders - Current: Current Medications Acetaminophen (Tylenol) 650 mg PO Q4H PRN PRN Reason: Pain (Mild 1-3)/fever Last Admin: 08/06/16 07:02 Dose: 325 mg Albuterol/Ipratropium (Duoneb 3.0-0.5 Mg/3 Ml) 3 ml NEB Q4H PRN PRN Reason: Shortness Of Breath/wheezing Bisacodyl (Dulcolax) 5 mg PO DAILY PRN PRN Reason: Constipation Chlordiazepoxide HCl (Librium) 25 mg PO Q8H [facility] Last Admin: 08/06/16 07:03 Dose: 25 mg Citalopram Hydrobromide (Celexa) 20 mg PO DAILY [facility] Last Admin: 08/06/16 09:57 Dose: 20 mg Clonidine HCl (Catapres) 0.1 mg PO Q12HR [facility] Last Admin: 08/06/16 09:57 Dose: 0.1 mg Diphenhydramine HCl (Benadryl) 25 mg IVPUSH BEDTIME PRN PRN Reason: Insomnia Last Admin: 08/03/16 20:53 Dose: 25 mg Docusate Sodium (Colace) 100 mg PO BID PRN PRN Reason: Constipation Enoxaparin Sodium (Lovenox) 40 mg SUBCUT DAILY [facility] Last Admin: 08/06/16 09:57 Dose: 40 mg Famotidine (Pepcid) 20 mg PO Q12H [facility] Last Admin: 08/06/16 09:57 Dose: 20 mg Haloperidol Lactate (Haldol) 2 mg IM Q4H PRN PRN Reason: Other Hydralazine HCl (Apresoline) 20 mg IVPUSH Q4H PRN PRN Reason: Hypertension Hydromorphone HCl (Dilaudid) 0.25 mg IVPUSH Q2H PRN PRN Reason: Pain (severe 7-10) Promethazine HCl 12.5 mg/ (Sodium Chloride) 50.5 mls @ 100 mls/hr IV Q6H PRN PRN Reason: Nausea/Vomiting Magnesium Sulfate 2 gm/ Premix 50 mls @ 25 mls/hr IV ONETIME ONE Stop: 08/06/16 12:43 Lorazepam (Ativan) 2 mg IVPUSH Q4H PRN PRN Reason: Seizures Lorazepam (Ativan) 0 mg IVPUSH Q4H PRN; Protocol PRN Reason: Withdrawal Symptoms Last Admin: 08/06/16 02:59 Dose: 1 mg Metoprolol Tartrate (Lopressor) 5 mg IVPUSH Q4H PRN PRN Reason: Tachycardia Nicotine (Habitrol) 21 mg TRDERM DAILY PRN PRN Reason: Other Last Admin: 08/05/16 19:31 Dose: 21 mg Ondansetron HCl (Zofran) 4 mg IV Q6H PRN PRN Reason: Nausea/Vomiting Polyethylene Glycol (Miralax) 17 gm PO DAILY PRN PRN Reason: Constipation Quetiapine Fumarate (Seroquel) 25 mg PO BID [facility] Last Admin: 08/06/16 09:57 Dose: 25 mg Senna/Docusate Sodium (Senna Plus) 1 tab PO BID PRN PRN Reason: Constipation Thiamine HCl (Vitamin B-1) 100 mg PO DAILY [facility] Last Admin: 08/06/16 09:57 Dose: 100 mg Discontinued Medications Hydrocodone Bitart/Acetaminophen ([place] 325-5 Mg) 1 tab PO Q4H PRN PRN Reason: Pain (moderate 4-6) Last Admin: 08/06/16 06:22 Dose: 1 tab Chlordiazepoxide HCl (Librium) 25 mg PO Q8H PRN PRN Reason: Withdrawal Symptoms Last Admin: 08/05/16 08:15 Dose: 25 mg Clonidine HCl (Catapres) 0.1 mg PO Q4H PRN PRN Reason: Agitation Last Admin: 08/03/16 20:52 Dose: 0.1 mg Enoxaparin Sodium (Lovenox) 30 mg SUBCUT DAILY [facility] Last Admin: 08/05/16 08:15 Dose: 30 mg Folic Acid (Folic Acid) 1 mg PO DAILY [facility] Stop: 08/05/16 09:01 Last Admin: 08/05/16 08:15 Dose: 1 mg Hydromorphone HCl (Dilaudid) 0.25 mg IVPUSH Q2H PRN PRN Reason: Pain (severe 7-10) Sodium Chloride (Normal Saline) 1,000 mls @ 125 mls/hr IV ASDIRECTED [facility] Last Admin: 08/04/16 20:16 Dose: 125 mls/hr Magnesium Sulfate 2 gm/ Premix 50 mls @ 25 mls/hr IV ONETIME ONE Stop: 08/05/16 11:32 Last Admin: 08/05/16 10:09 Dose: 25 mls/hr Magnesium Oxide (Magnesium Oxide) 400 mg PO BID@1200,2100 [facility] Stop: 08/04/16 21:01 Last Admin: 08/04/16 20:59 Dose: 400 mg Magnesium Sulfate (Pharmacy To Dose - Magnesium Replacement) 0 dose .XX ASDIRECTED PRN PRN Reason: RX TO MONITOR MAG LEVELS Multivitamins (Thera) 1 each PO ONETIME ONE Stop: 08/03/16 21:01 Last Admin: 08/03/16 20:52 Dose: 1 each Potassium Chloride (Pharmacy To Dose - Potassium Replacement) 0 dose .XX ASDIRECTED PRN PRN Reason: RX TO MONITOR K LEVELS - Exam Quality Assessment: supplemental oxygen, DVT prophylaxis General: alert, oriented, cooperative HEENT: Pupils equal, Pupils reactive, EOMI Neck: supple, trachea midline Lungs: Normal respiratory effort Cardiovascular: Regular Rate, Regular Rhythm Abdomen: bowel sounds present, soft, no tenderness, no distension (Female) Exam: Deferred Back Exam: Normal Inspection Extremities: normal pulses Skin: warm Neurological: no new focal deficit Psy/Mental Status: alert - Problem List Review Problem List Initiated/Reviewed/Updated: Yes - My Orders Last 24 Hours: My Active Orders 08/05/16 16:00 chlordiazePOXIDE [Librium] 25 mg PO Q8H 08/05/16 21:00 cloNIDine [Catapres] 0.1 mg PO Q12HR 08/06/16 09:00 Hand Comp Min 3V Lt [CR] Routine Wrist Comp Min 3V Lt [CR] Routine 08/06/16 10:44 Magnesium Sulfate/Water [Magnesium Sulfate 2 GM in Water 50 ML] 2 gm Premix Bag 1 bag IV ONETIME - Plan Plan:: Assessment: Acute ETOH Intoxication - DMITRY 0.45 on admission - [facility] protocol: CIWA score si 0-3 - Ativan/Librium/Haldol/Seroquel/Benadryl, decreasing meds for treatment as tolerated. Placement is pending. - Hydralazine and IVP BB for HR/BP control - Ativan for Abortive Seizure and Withdrawal Symptoms Chronic ETOH Abuse - Hx/o excessive drinkin-24 packs a day - Had more reason to drinks after her children were taken away from her - CIWA protocol - SAC input appreciated; was seen today after spouse requested more aggressive placement, difficult weekend with holiday on Saturday Anxiety and Depression - She denies being suicidal or homicidal - On Lexapro- appears to be inconsistently taking it - Psych Tele input Low TSH level - Likely has hyperthyroidism - She looks skinny - FT4 is pending - Defer outpatient for further testing Tobacco Dependence - Smokes 1ppd - Nicotine patch daily - Counseled on Smoking Cessation Plan: She is clinically stable and looks much better Continue IVF, MVI, Folic, Acid and Thiamine CIWA protocol FT4 level pending Ativan for Abortive Seizure PRN meds for Withdrawal Symptoms Aspiration/Seizure Precautions SW/CM d/c planning Awaiting SA/Psych consult Code Status: 1
[2016-08-07] MEDS: chlordiazePOXIDE 25 MG Cap PO SCH ×3 (00:42→08:00)
--- NOTE | 2016-08-07 07:56 | CONS ---
CONSULTING PHYSICIAN: Padilla Askew LAC DATE OF CONSULTATION: 08/04/2016 TIME: 10:47 p.m. on 08/04/2016. REASON FOR VISIT: The patient is a 36-year-old female, admitted to [facility] on 08/03/2016 with a DMITRY of 0.45 secondary to alcohol use disorder, severe, chronic. Alcohol and Drug consultation was requested by Dr. Guadarrama at approximately 7 p.m. on 08/03/2016. A petition for involuntary commitment was executed on 08/03/2016 as the patient presented with a possible fatal DMITRY, and there was some concern that she may not stay at the hospital as her last hospital admission which was two weeks ago, she left AMA. SOURCES OF INFORMATION: The patient's self report, collateral information by patient's , and hospital records. HISTORY OF PRESENT ILLNESS: The patient reports that she was born in [place], [place], and raised in [place] and [place] by her biological parents who are still together. She has four sisters. She states she has a high-school education. The patient reports that she was at age 26 and they have two children. This past week, her took the kids and moved out because of her drinking. She states that her mother is an alcoholic, and quit drinking when she was 8 years old. However, her mother started to drink again when the patient was 14, and has continued to drink on and off. The patient states that she drinks like her mother, "drinking all the time." She also reports that her mother is bipolar, and she has some concern that she could have the same mental health disorder. The patient was advised to speak to Dr. Dahl regarding her concerns. 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 SUBSTANCE ABUSE HISTORY: The patient reports that she started to drink at age 21. She said she did not drink in high school because she was too busy being responsible for her younger sisters, as her mother was drinking. From age 21 to 23, she drank about twice a week, typically four to six beers per occasion. She had her first child at age 23, and states that she drank right after she had the baby because her father said that beer would be good for her breast milk. She reports drinking between ages 23 and 25 when she had her next child at least twice a week, four to six beers per occasion. The patient moved to [place] 5 years ago, and states that her drinking became problematic. She states she would typically drink a 12- pack and a couple of shots of liquor several times a week at the bar while socializing and meeting people. Her several times a week at the bar turned into daily, and 2 years ago, she presented to [facility], and was committed to the [facility] for alcohol use disorder, severe, with accompanying suicidal ideation. She then went to [facility]; however, was asked to leave because her insurance would no longer pay. She subsequently was admitted to [facility], and was able to stay sober for about 4 months before she started to drink again. This was in the spring. The patient reports that she has been drinking daily since that time, at least a 12-pack of beer, and a couple of shots of liquor. Collateral report from her indicates that she is drinking up to a half a case of beer and a half a bottle of liquor daily. Approximately 2 weeks ago, he states that the patient was drunk, and fell down the stairs. He also reports that the patient has been hiding her alcohol and driving to surrounding towns to buy liquor because the bar in [place] will no longer sell liquor to her. He goes on to add that the patient is drinking to fatal BACs of 0.30 or higher, and is able to function and do her job. The patient reports that she drinks before her job at lunch and when she gets off work. DIAGNOSES: The patient meets DSM V criteria for the following diagnoses: 1. F10.20 alcohol use disorder, severe. 2. F10.229 alcohol intoxication. 3. F10.232 alcohol withdrawal with perceptual disturbance. 4. F17.200 tobacco use disorder, severe. ASAM DIMENSIONS: 1. Dimension 1: Score 2+. The patient has some difficulty tolerating and coping with withdrawal discomfort. Intoxication may be severe, but responds to support and treatment. The patient is drinking to BACs of 0.45. 2. Dimension 2: Score 1. The patient tolerates and imelda with physical discomfort, and is able to get the services she needs. There may be some medical consequences; however, no determination has been made as of yet. 3. Dimension 3: Score 2. The patient has difficulty with impulse control and lacks coping skills. She has thoughts of suicide, and has been committed in the past for ideation. Family is reporting that she has spoken of suicidal ideation. There may be a mental health diagnosis, and a psychiatric evaluation is needed. 4. Dimension 4: Score 3. The patient displays minimal awareness of her addiction, and is minimally cooperative to follow through with treatment. She appears to be superficially cooperative for the evaluation. 5. Dimension 5: Score 3. The patient has little recognition and understanding of relapse and recidivism issues, and displays a high vulnerability for further substance use problems. 6. Dimension 6: Score 3. The patient was engaged in structured meaningful activity. However, her drinking has severely impacted her family and her significant relationships. Continued drinking to these near-fatal levels will no doubt be impacting employment at some point. ASSESSMENT SUMMARY: The patient appears to be a nice woman, who is battling a maternal biologically- driven alcohol addiction. She states she drinks like her mother, and her mother has not been able to arrest her addiction completely yet, which is concerning for the patient's prognosis. Her is reporting that he and her family of origin want her to go to treatment and stop drinking. Different treatment options were discussed with the patient, and when asked if she wanted substance abuse treatment, intervention, and professional assistance, she replies "I don't know what I want right now." The patient was admitted last night on 08/03/2016 with a DMITRY of 0.45, and family was reporting suicidal ideation for the patient's safety. A petition for involuntary commitment was executed requiring a safe discharge plan. RECOMMENDATIONS: The patient meets ASAM criteria for a level of 3.5, clinically managed medium- intensity residential treatment, and a petition for involuntary commitment was executed. I spoke with Dr. Guadarrama regarding the patient's status, and it was agreed that the patient is demonstrating life-threatening drinking behaviors, which requires a commitment. I spoke with JEANETTE Enriquez, regarding the patient on 08/03/2016. However, there was no determination as to what treatment facility the patient could be admitted to as it was the beginning of the holiday weekend. I will speak to JEANETTE Enriquez, when she returns from the weekend, and we will assist her in coordinating the admission to an appropriate facility. I will follow up on 08/06/2016 with JEANETTE De Leon, to see if the hospital will be requiring my further assistance. GASPER /[id number]
[2016-08-07] MEDS: Famotidine 20 MG Tab PO SCH (07:59)
[2016-08-07] MEDS: Thiamine 100 MG Tab PO SCH (07:59)
[2016-08-07] MEDS: QUEtiapine 25 MG Tab PO SCH (08:00)
[2016-08-07] MEDS: Citalopram 20 MG Tab PO SCH (08:00)
[2016-08-07] MEDS: Enoxaparin 40 MG/0.4 ML Syringe SUBCUT SCH (08:00)
[2016-08-07] MEDS: cloNIDine 0.1 MG Tab PO SCH (08:01)
[2016-08-07] MEDS ORDERED: Magnesium Sulfate/Water 2 GM in Premix Bag 1 BAG IV ONE (10:05)
[2016-08-07] MEDS: LORazepam 2 MG/ML MDV IVPUSH PRN (10:41)
[2016-08-07 11:16] VITALS: BP 110/62
--- NOTE | 2016-08-07 12:17 | PCM.DCSUM1 ---
<Denia Ortiz M - Last Filed: 08/07/16 12:13> Discharge Summary - Hospital Course Free Text/Narrative:: This is a 36 yo white female with past medical hx/o Anxiety and Depression who was brought in by [facility] due to intoxication and combativeness per family' s request. Per ED notes, she not acting right and family states she is suicidal. Her left her about a week ago and took the kids along with him. Patient carries a hx/o excessive drinking. She also had recurrent falls perhaps due to intoxication. She has right yuki-orbital hematoma. En route to ED patient was combative but started relaxed and cooperate after she received 5mg mg IM haldol from EMS. Her initial work up in ED shows a fairly unremarkable CBC. Her chemistry is significant for Na 147, AG 17.8, BUN 3, Ca+ 8.1, and TSH 0.352. UA is negative for UTI. screening negative. Her UDS is negative. Her DMITRY is 0.45. Head CT scan report reads within normal limits for patient age. Patient is being admitted fro acute ETOH Intoxication and Combativeness. Patient admitted to ICU status initially for alcohol withdrawl protocol; CIWA with ativan protocol, librium protocol and seroquel BID. Labs were followed. LAC was consulted who committed patient to [facility] for alcohol treatment. Psychiatry, Dr. Dahl was also consulted. She detoxed without acute problems and will be discharged today to [facility] with law enforcement to drive/transport. - Discharge Data Discharge Date: 08/07/16 (admit date 08/03/16) Discharge Disposition: DC/Tfer to Other Condition: Good - Patient Summary/Data Operative Procedure(s) Performed: None Complications: None Consults: Consultations 08/03/16 20:25 Consult to Case Management [CONS] Routine Consult to Physician [CONS] Routine Consult to Optical Sales Associate [CONS] Routine Consult to Spiritual Care [CONS] Routine Labs Pending at D/C: None Recommended Follow-up Testing/Procedures: N/A Committed to [facility] for alcohol treatment program. Planned Operative Procedure(s) after DC: None Hospital Course: As above - Patient Instructions Diet: Usual Diet as Tolerated, Drink 8-10+ Glasses/Day, No Alcoholic Beverages Activity: As Tolerated Driving: Do Not Drive Showering/Bathing: May Shower Notify Provider of: Fever, Increased Pain, Nausea and/or Vomiting - Discharge Plan Prescriptions/Med Rec: Escitalopram [Lexapro] 10 mg PO DAILY #30 tablet Nicotine [Habitrol] 21 mg TRDERM DAILY #30 patch QUEtiapine [SEROquel] 25 mg PO BID #30 tablet Thiamine [Vitamin B-1] 100 mg PO DAILY #30 tablet chlordiazePOXIDE [Librium] 25 mg PO DAILY #5 cap cloNIDine [Catapres] 0.1 mg PO BEDTIME #5 tablet Home Medications: Home Meds Escitalopram [Lexapro] 10 mg PO DAILY #30 tablet 08/07/16 [Rx] Nicotine [Habitrol] 21 mg TRDERM DAILY #30 patch 08/07/16 [Rx] QUEtiapine [SEROquel] 25 mg PO BID #30 tablet 08/07/16 [Rx] Thiamine [Vitamin B-1] 100 mg PO DAILY #30 tablet 08/07/16 [Rx] chlordiazePOXIDE [Librium] 25 mg PO DAILY #5 cap 08/07/16 [Rx] cloNIDine [Catapres] 0.1 mg PO BEDTIME #5 tablet 08/07/16 [Rx] Patient Handouts: Smoking Cessation, Tips for Success, [id number], Alcohol Intoxication, [id number] Referrals: PCP,None [Primary Care Provider] - - Discharge Summary/Plan Comment DC Time >30 min.: Yes (40 min) - General Info Date of Service: 08/07/16 Admission Dx/Problem (Free Text: Alcohol detox Functional Status: Reports: tolerating diet, ambulating, urinating. Denies: new symptoms - Review of Systems General: Reports: No Symptoms HEENT: Reports: no symptoms Pulmonary: Reports: no symptoms Cardiovascular: Reports: No Symptoms Gastrointestinal: Reports: No symptoms Genitourinary: Reports: no symptoms Musculoskeletal: Reports: no symptoms Skin: Reports: no symptoms Neurological: Reports: No Symptoms Psychiatric: Reports: no symptoms - Patient Data Vitals - Most Recent: Last Vital Signs Temp 98.8 F 08/07/16 11:14 Pulse 56 L 08/07/16 11:14 Resp 12 08/07/16 11:14 BP 110/62 08/07/16 11:14 Pulse Ox 97 08/07/16 11:14 Weight - Most Recent: 56.88 kg I&O - Last 24 hours: Intake & Output 08/06/16 08/07/16 08/07/16 22:59 06:59 14:59 Intake Total 1510 580 450 Output Total 2800 Balance -1290 580 450 Lab Results - Last 24 hrs: Laboratory Results - last 24 hr 08/07/16 08/07/16 Range/Units 06:10 06:10 WBC 5.03 (3.98-10.04) K/mm3 RBC 3.52 L (3.98-5.22) M/mm3 Hgb 11.0 L (11.2-15.7) gm/L Hct 34.7 (34.1-44.9) % MCV 98.6 H (79.4-94.8) fl MCH 31.3 (25.6-32.2) pg MCHC 31.7 L (32.2-35.5) g/dl RDW Std Deviation 45.6 (36.4-46.3) fL Plt Count 108 L (182-369) K/mm3 MPV 10.3 (9.4-12.3) fl Neut % (Auto) 63.4 (34.0-71.1) % Lymph % (Auto) 25.4 (19.3-51.7) % Shannon % (Auto) 8.0 (4.7-12.5) % Eos % (Auto) 2.8 (0.7-5.8) Baso % (Auto) 0.2 (0.1-1.2) % Neut # (Auto) 3.19 (1.56-6.13) K/mm3 Lymph # (Auto) 1.28 (1.18-3.74) K/mm3 Shannon # (Auto) 0.40 H (0.24-0.36) K/mm3 Eos # (Auto) 0.14 (0.04-0.36) K/mm3 Baso # (Auto) 0.01 (0.01-0.08) K/mm3 Sodium 138 (136-145) mEq/L Potassium 4.4 (3.5-5.1) mEq/L Chloride 105 (98-107) mEq/L Carbon Dioxide 28 (21-32) mEq/L Anion Gap 9.4 (5-15) BUN 6 L (7-18) mg/dL Creatinine 0.6 (0.55-1.02) mg/dL Est Cr Clr Drug Dosing 116.39 mL/min Estimated GFR (MDRD) > 60 (>60) mL/min BUN/Creatinine Ratio 10.0 L (14-18) Glucose 93 (74-106) mg/dL Calcium 8.4 L (8.5-10.1) mg/dL Magnesium 1.8 (1.8-2.4) mg/dl Med Orders - Current: Current Medications Acetaminophen (Tylenol) 650 mg PO Q4H PRN PRN Reason: Pain (Mild 1-3)/fever Last Admin: 08/06/16 07:02 Dose: 325 mg Albuterol/Ipratropium (Duoneb 3.0-0.5 Mg/3 Ml) 3 ml NEB Q4H PRN PRN Reason: Shortness Of Breath/wheezing Bisacodyl (Dulcolax) 5 mg PO DAILY PRN PRN Reason: Constipation Chlordiazepoxide HCl (Librium) 25 mg PO Q8H [facility] Last Admin: 08/07/16 08:00 Dose: 25 mg Citalopram Hydrobromide (Celexa) 20 mg PO DAILY [facility] Last Admin: 08/07/16 08:00 Dose: 20 mg Clonidine HCl (Catapres) 0.1 mg PO Q12HR [facility] Last Admin: 08/07/16 08:01 Dose: Not Given Diphenhydramine HCl (Benadryl) 25 mg IVPUSH BEDTIME PRN PRN Reason: Insomnia Last Admin: 08/03/16 20:53 Dose: 25 mg Docusate Sodium (Colace) 100 mg PO BID PRN PRN Reason: Constipation Enoxaparin Sodium (Lovenox) 40 mg SUBCUT DAILY [facility] Last Admin: 08/07/16 08:00 Dose: 40 mg Famotidine (Pepcid) 20 mg PO Q12H [facility] Last Admin: 08/07/16 07:59 Dose: 20 mg Haloperidol Lactate (Haldol) 2 mg IM Q4H PRN PRN Reason: Other Hydralazine HCl (Apresoline) 20 mg IVPUSH Q4H PRN PRN Reason: Hypertension Hydromorphone HCl (Dilaudid) 0.25 mg IVPUSH Q2H PRN PRN Reason: Pain (severe 7-10) Promethazine HCl 12.5 mg/ (Sodium Chloride) 50.5 mls @ 100 mls/hr IV Q6H PRN PRN Reason: Nausea/Vomiting Lorazepam (Ativan) 2 mg IVPUSH Q4H PRN PRN Reason: Seizures Lorazepam (Ativan) 0 mg IVPUSH Q4H PRN; Protocol PRN Reason: Withdrawal Symptoms Last Admin: 08/07/16 10:41 Dose: 1 mg Metoprolol Tartrate (Lopressor) 5 mg IVPUSH Q4H PRN PRN Reason: Tachycardia Nicotine (Habitrol) 21 mg TRDERM DAILY PRN PRN Reason: Other Last Admin: 08/05/16 19:31 Dose: 21 mg Ondansetron HCl (Zofran) 4 mg IV Q6H PRN PRN Reason: Nausea/Vomiting Polyethylene Glycol (Miralax) 17 gm PO DAILY PRN PRN Reason: Constipation Quetiapine Fumarate (Seroquel) 25 mg PO BID [facility] Last Admin: 08/07/16 08:00 Dose: 25 mg Senna/Docusate Sodium (Senna Plus) 1 tab PO BID PRN PRN Reason: Constipation Thiamine HCl (Vitamin B-1) 100 mg PO DAILY [facility] Last Admin: 08/07/16 07:59 Dose: 100 mg Discontinued Medications Hydrocodone Bitart/Acetaminophen ([place] 325-5 Mg) 1 tab PO Q4H PRN PRN Reason: Pain (moderate 4-6) Last Admin: 08/06/16 06:22 Dose: 1 tab Chlordiazepoxide HCl (Librium) 25 mg PO Q8H PRN PRN Reason: Withdrawal Symptoms Last Admin: 08/05/16 08:15 Dose: 25 mg Clonidine HCl (Catapres) 0.1 mg PO Q4H PRN PRN Reason: Agitation Last Admin: 08/03/16 20:52 Dose: 0.1 mg Enoxaparin Sodium (Lovenox) 30 mg SUBCUT DAILY [facility] Last Admin: 08/05/16 08:15 Dose: 30 mg Folic Acid (Folic Acid) 1 mg PO DAILY [facility] Stop: 08/05/16 09:01 Last Admin: 08/05/16 08:15 Dose: 1 mg Hydromorphone HCl (Dilaudid) 0.25 mg IVPUSH Q2H PRN PRN Reason: Pain (severe 7-10) Sodium Chloride (Normal Saline) 1,000 mls @ 125 mls/hr IV ASDIRECTED [facility] Last Admin: 08/04/16 20:16 Dose: 125 mls/hr Magnesium Sulfate 2 gm/ Premix 50 mls @ 25 mls/hr IV ONETIME ONE Stop: 08/05/16 11:32 Last Admin: 08/05/16 10:09 Dose: 25 mls/hr Magnesium Sulfate 2 gm/ Premix 50 mls @ 25 mls/hr IV ONETIME ONE Stop: 08/06/16 12:43 Last Admin: 08/06/16 12:48 Dose: 25 mls/hr Magnesium Sulfate 2 gm/ Premix 50 mls @ 25 mls/hr IV ONETIME ONE Stop: 08/07/16 12:04 Last Admin: 08/07/16 10:41 Dose: 25 mls/hr Magnesium Oxide (Magnesium Oxide) 400 mg PO BID@1200,2100 [facility] Stop: 08/04/16 21:01 Last Admin: 08/04/16 20:59 Dose: 400 mg Magnesium Sulfate (Pharmacy To Dose - Magnesium Replacement) 0 dose .XX ASDIRECTED PRN PRN Reason: RX TO MONITOR MAG LEVELS Multivitamins (Thera) 1 each PO ONETIME ONE Stop: 08/03/16 21:01 Last Admin: 08/03/16 20:52 Dose: 1 each Potassium Chloride (Pharmacy To Dose - Potassium Replacement) 0 dose .XX ASDIRECTED PRN PRN Reason: RX TO MONITOR K LEVELS - Exam Quality Assessment: Reports: DVT prophylaxis General: Reports: alert, oriented, cooperative HEENT: Reports: Pupils equal, EOMI, Mucous membr. moist/pink Neck: Reports: supple Lungs: Reports: Clear to auscultation, Normal respiratory effort Cardiovascular: Reports: Regular Rate, Regular Rhythm Abdomen: Reports: bowel sounds present, soft (Female) Exam: Deferred Rectal (Female) Exam: Deferred Extremities: Reports: no edema Neurological: Reports: no new focal deficit Psy/Mental Status: Reports: alert, normal affect, anxious *Q Meaningful Use (DIS) - VTE *Q VTE Criteria *Q: - Stroke *Q Stroke Criteria *Q: - AMI *Q AMI Criteria *Q: <Heather Trujillo - Last Filed: 08/07/16 15:32> Discharge Summary - Hospital Course Free Text/Narrative:: [facility], discussed before pick by with LUCA Ron. - Patient Summary/Data Consults: Consultations 08/03/16 20:25 Consult to Case Management [CONS] Routine Consult to Physician [CONS] Routine Consult to Optical Sales Associate [CONS] Routine Consult to Spiritual Care [CONS] Routine - Patient Data Vitals - Most Recent: Last Vital Signs Temp 37.1 C 08/07/16 11:14 Pulse 56 L 08/07/16 11:14 Resp 12 08/07/16 11:14 BP 110/62 08/07/16 11:14 Pulse Ox 97 08/07/16 11:14 I&O - Last 24 hours: Intake & Output 08/07/16 08/07/16 08/07/16 06:59 14:59 22:59 Intake Total 580 450 Balance 580 450 Lab Results - Last 24 hrs: Laboratory Results - last 24 hr 08/07/16 08/07/16 Range/Units 06:10 06:10 WBC 5.03 (3.98-10.04) K/mm3 RBC 3.52 L (3.98-5.22) M/mm3 Hgb 11.0 L (11.2-15.7) gm/L Hct 34.7 (34.1-44.9) % MCV 98.6 H (79.4-94.8) fl MCH 31.3 (25.6-32.2) pg MCHC 31.7 L (32.2-35.5) g/dl RDW Std Deviation 45.6 (36.4-46.3) fL Plt Count 108 L (182-369) K/mm3 MPV 10.3 (9.4-12.3) fl Neut % (Auto) 63.4 (34.0-71.1) % Lymph % (Auto) 25.4 (19.3-51.7) % Shannon % (Auto) 8.0 (4.7-12.5) % Eos % (Auto) 2.8 (0.7-5.8) Baso % (Auto) 0.2 (0.1-1.2) % Neut # (Auto) 3.19 (1.56-6.13) K/mm3 Lymph # (Auto) 1.28 (1.18-3.74) K/mm3 Shannon # (Auto) 0.40 H (0.24-0.36) K/mm3 Eos # (Auto) 0.14 (0.04-0.36) K/mm3 Baso # (Auto) 0.01 (0.01-0.08) K/mm3 Sodium 138 (136-145) mEq/L Potassium 4.4 (3.5-5.1) mEq/L Chloride 105 (98-107) mEq/L Carbon Dioxide 28 (21-32) mEq/L Anion Gap 9.4 (5-15) BUN 6 L (7-18) mg/dL Creatinine 0.6 (0.55-1.02) mg/dL Est Cr Clr Drug Dosing 116.39 mL/min Estimated GFR (MDRD) > 60 (>60) mL/min BUN/Creatinine Ratio 10.0 L (14-18) Glucose 93 (74-106) mg/dL Calcium 8.4 L (8.5-10.1) mg/dL Magnesium 1.8 (1.8-2.4) mg/dl Med Orders - Current: Current Medications Discontinued Medications Acetaminophen (Tylenol) 650 mg PO Q4H PRN PRN Reason: Pain (Mild 1-3)/fever Last Admin: 08/06/16 07:02 Dose: 325 mg Hydrocodone Bitart/Acetaminophen ([place] 325-5 Mg) 1 tab PO Q4H PRN PRN Reason: Pain (moderate 4-6) Last Admin: 08/06/16 06:22 Dose: 1 tab Albuterol/Ipratropium (Duoneb 3.0-0.5 Mg/3 Ml) 3 ml NEB Q4H PRN PRN Reason: Shortness Of Breath/wheezing Bisacodyl (Dulcolax) 5 mg PO DAILY PRN PRN Reason: Constipation Chlordiazepoxide HCl (Librium) 25 mg PO Q8H PRN PRN Reason: Withdrawal Symptoms Last Admin: 08/05/16 08:15 Dose: 25 mg Chlordiazepoxide HCl (Librium) 25 mg PO Q8H [facility] Last Admin: 08/07/16 08:00 Dose: 25 mg Citalopram Hydrobromide (Celexa) 20 mg PO DAILY [facility] Last Admin: 08/07/16 08:00 Dose: 20 mg Clonidine HCl (Catapres) 0.1 mg PO Q4H PRN PRN Reason: Agitation Last Admin: 08/03/16 20:52 Dose: 0.1 mg Clonidine HCl (Catapres) 0.1 mg PO Q12HR [facility] Last Admin: 08/07/16 08:01 Dose: Not Given Diphenhydramine HCl (Benadryl) 25 mg IVPUSH BEDTIME PRN PRN Reason: Insomnia Last Admin: 08/03/16 20:53 Dose: 25 mg Docusate Sodium (Colace) 100 mg PO BID PRN PRN Reason: Constipation Enoxaparin Sodium (Lovenox) 30 mg SUBCUT DAILY [facility] Last Admin: 08/05/16 08:15 Dose: 30 mg Enoxaparin Sodium (Lovenox) 40 mg SUBCUT DAILY [facility] Last Admin: 08/07/16 08:00 Dose: 40 mg Famotidine (Pepcid) 20 mg PO Q12H [facility] Last Admin: 08/07/16 07:59 Dose: 20 mg Folic Acid (Folic Acid) 1 mg PO DAILY [facility] Stop: 08/05/16 09:01 Last Admin: 08/05/16 08:15 Dose: 1 mg Haloperidol Lactate (Haldol) 2 mg IM Q4H PRN PRN Reason: Other Hydralazine HCl (Apresoline) 20 mg IVPUSH Q4H PRN PRN Reason: Hypertension Hydromorphone HCl (Dilaudid) 0.25 mg IVPUSH Q2H PRN PRN Reason: Pain (severe 7-10) Hydromorphone HCl (Dilaudid) 0.25 mg IVPUSH Q2H PRN PRN Reason: Pain (severe 7-10) Promethazine HCl 12.5 mg/ (Sodium Chloride) 50.5 mls @ 100 mls/hr IV Q6H PRN PRN Reason: Nausea/Vomiting Sodium Chloride (Normal Saline) 1,000 mls @ 125 mls/hr IV ASDIRECTED [facility] Last Admin: 08/04/16 20:16 Dose: 125 mls/hr Magnesium Sulfate 2 gm/ Premix 50 mls @ 25 mls/hr IV ONETIME ONE Stop: 08/05/16 11:32 Last Admin: 08/05/16 10:09 Dose: 25 mls/hr Magnesium Sulfate 2 gm/ Premix 50 mls @ 25 mls/hr IV ONETIME ONE Stop: 08/06/16 12:43 Last Admin: 08/06/16 12:48 Dose: 25 mls/hr Magnesium Sulfate 2 gm/ Premix 50 mls @ 25 mls/hr IV ONETIME ONE Stop: 08/07/16 12:04 Last Admin: 08/07/16 10:41 Dose: 25 mls/hr Lorazepam (Ativan) 2 mg IVPUSH Q4H PRN PRN Reason: Seizures Lorazepam (Ativan) 0 mg IVPUSH Q4H PRN; Protocol PRN Reason: Withdrawal Symptoms Last Admin: 08/07/16 10:41 Dose: 1 mg Magnesium Oxide (Magnesium Oxide) 400 mg PO BID@1200,2100 [facility] Stop: 08/04/16 21:01 Last Admin: 08/04/16 20:59 Dose: 400 mg Magnesium Sulfate (Pharmacy To Dose - Magnesium Replacement) 0 dose .XX ASDIRECTED PRN PRN Reason: RX TO MONITOR MAG LEVELS Metoprolol Tartrate (Lopressor) 5 mg IVPUSH Q4H PRN PRN Reason: Tachycardia Multivitamins (Thera) 1 each PO ONETIME ONE Stop: 08/03/16 21:01 Last Admin: 08/03/16 20:52 Dose: 1 each Nicotine (Habitrol) 21 mg TRDERM DAILY PRN PRN Reason: Other Last Admin: 08/05/16 19:31 Dose: 21 mg Ondansetron HCl (Zofran) 4 mg IV Q6H PRN PRN Reason: Nausea/Vomiting Polyethylene Glycol (Miralax) 17 gm PO DAILY PRN PRN Reason: Constipation Potassium Chloride (Pharmacy To Dose - Potassium Replacement) 0 dose .XX ASDIRECTED PRN PRN Reason: RX TO MONITOR K LEVELS Quetiapine Fumarate (Seroquel) 25 mg PO BID [facility] Last Admin: 08/07/16 08:00 Dose: 25 mg Senna/Docusate Sodium (Senna Plus) 1 tab PO BID PRN PRN Reason: Constipation Thiamine HCl (Vitamin B-1) 100 mg PO DAILY [facility] Last Admin: 08/07/16 07:59 Dose: 100 mg *Q Meaningful Use (DIS) - VTE *Q VTE Criteria *Q: - Stroke *Q Stroke Criteria *Q: - AMI *Q AMI Criteria *Q:
== END 2016-08-07 14:05 | disposition other institution (70) | DRG 775 ==
LOC: JD.ED 16:18 → JD.ICU 19:55 → JD.MS 08-05 18:03
PROVIDERS: ADMIT Internal Medicine; ATTEND Internal Medicine
DX: F10.229 Alcohol dependence with intoxication, unspecified (principal); F10.232 Alcohol dependence with withdrawal with perceptual disturbance; Y90.2 Blood alcohol level of 40-59 mg/100 ml; F41.9 Anxiety disorder, unspecified; F17.200 Nicotine dependence, unspecified, uncomplicated; R29.6 Repeated falls; Z79.899 Other long term (current) drug therapy; F33.2 Major depressive disorder, recurrent severe without psychotic features; S05.11XA Contusion of eyeball and orbital tissues, right eye, initial encounter; W19.XXXA Unspecified fall, initial encounter
CPT/HCPCS: 36415; 70450; 70450-26; 73110-26-LT; 73110-LT; 73130-26-LT; 73130-LT; 80048; 80053; 80306; 81001; 81025; 82977; 83735; 84439; 84443; 85025; 85610; 85730; 99284; 99285-25; A9270-GY; G0480; J1200; J1650; J2060; J3475; J7040

== ENCOUNTER 2018-12-23 15:11 | Emergency (ER) | payer BC ==
[2018-12-23] MEDS ORDERED: Sodium Chloride 0.9% 10 ML Syringe FLUSH PRN (15:37)
[2018-12-23] MEDS ORDERED: Ondansetron 4 MG/2 ML SDV IVPUSH ONE (15:38)
[2018-12-23] MEDS ORDERED: Sodium Chloride 0.9% 1,000 ML IV ONE ×2 (15:38→16:36)
[2018-12-23] MEDS ORDERED: LORazepam 2 MG/ML SDV IVPUSH ONE (15:41)
--- NOTE | 2018-12-23 16:03 | EDM.PDOC ---
ED HPI GENERAL MEDICAL PROBLEM - General Chief Complaint: Gastrointestinal Problem Stated Complaint: VOMITING BLOOD Time Seen by Provider: 12/23/18 15:29 Source of Information: Reports: Patient, RN Notes Reviewed History Limitations: Reports: No Limitations - History of Present Illness INITIAL COMMENTS - FREE TEXT/NARRATIVE: Patient is a 38-year-old female who presents to the ED for the evaluation of nausea and vomiting. The patient states that she felt sick last night, but she started vomiting this morning, she states she is not able to keep anything for fluids down she has been trying to drink Pedialyte, water, Gatorade but none of it is staying down. She did have some bright red blood noted in her emesis, she stated about half a cup. She has a pain in her epigastrium. She denies any chest discomfort. She states that she does have a positive alcohol history , and she does drink 6-12 beers per day, she states that she had 1 beer last night as she was feeling sick. So this has been roughly 24 hours since her last drink. Patient is very shaky and anxious at time of exam. 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: Psychiatric History: Reports: Anxiety, Depression, Other (See Below) Social & Family History - Family History Family Medical History: Noncontributory - Tobacco Use Smoking Status *Q: Current Every Day Smoker Years of Tobacco use: 5 Packs/Tins Daily: 1 - Caffeine Use Caffeine Use: Reports: Coffee - Alcohol Use Days Per Week of Alcohol Use: 7 Number of Drinks Per Day: 12 Total Drinks Per Week: 84 Date of Last Drink: 12/22/18 - Recreational Drug Use Recreational Drug Use: No - Living Situation & Occupation Living situation: Reports: Occupation: Unemployed ED ROS GENERAL - Review of Systems Review Of Systems: See Below Constitutional: Reports: No Symptoms HEENT: Reports: No Symptoms Respiratory: Reports: No Symptoms Cardiovascular: Reports: No Symptoms Endocrine: Reports: No Symptoms GI/Abdominal: Reports: Abdominal Pain (epigastrium), Hematemesis, Nausea, Vomiting. Denies: Constipation, Diarrhea : Reports: No Symptoms Musculoskeletal: Reports: No Symptoms Skin: Reports: No Symptoms Neurological: Reports: No Symptoms Psychiatric: Reports: No Symptoms, Anxiety Hematologic/Lymphatic: Reports: No Symptoms Immunologic: Reports: No Symptoms ED EXAM, GI/ABD - Physical Exam Exam: See Below Exam Limited By: No Limitations General Appearance: Alert, WD/WN, Mild Distress (pt is visibly shaking and looks nauseous on ED cot) Eyes: Bilateral: Normal Appearance Throat/Mouth: Normal Inspection, Normal Lips, Normal Teeth, Normal Gums, Normal Oropharynx, Normal Voice, No Airway Compromise Head: Atraumatic, Normocephalic Neck: Normal Inspection Respiratory/Chest: No Respiratory Distress, Lungs Clear, Normal Breath Sounds, No Accessory Muscle Use, Chest Non-Tender Cardiovascular: Normal Peripheral Pulses, Regular Rate, Rhythm, No Murmur GI/Abdominal Exam: Normal Bowel Sounds, Soft, Non-Tender, No Distention, Tender (epigastrium) Extremities: Normal Inspection, Normal Capillary Refill Neurological: Alert, Oriented, Normal Cognition, No Motor/Sensory Deficits Psychiatric: Normal Affect, Normal Mood Skin Exam: Warm, Dry, Intact, Normal Color, No Rash Course - Vital Signs Last Recorded V/S: Last Vital Signs Temp 98.2 F 12/23/18 15:20 Pulse 109 H 12/23/18 15:20 Resp 26 H 12/23/18 15:20 BP 135/70 12/23/18 15:20 Pulse Ox 100 12/23/18 15:20 - Orders/Labs/Meds Orders: Active Orders 24 hr Category Date Time Status Peripheral IV Care [RC] . DIRECTED Care 12/23/18 15:38 Active Potassium Chloride [KCl 10 MEQ in Water 100 ML] 10 meq Med 12/23/18 16:35 Active Premix Bag 1 bag IV ONETIME Sodium Chloride 0.9% [Normal Saline] 1,000 ml Med 12/23/18 16:36 Active IV ONETIME Sodium Chloride 0.9% [Saline Flush] Med 12/23/18 15:37 Active 10 ml FLUSH ASDIRECTED PRN Peripheral IV Insertion Adult [OM.PC] Stat Oth 12/23/18 15:37 Ordered Medication Orders Sodium Chloride (Normal Saline) 1,000 mls @ 999 mls/hr IV ONETIME ONE Stop: 12/23/18 17:36 Last Admin: 12/23/18 16:54 Dose: 999 mls/hr Potassium Chloride 10 meq/ (Premix) 100 mls @ 100 mls/hr IV ONETIME ONE Stop: 12/23/18 17:34 Last Admin: 12/23/18 16:56 Dose: 100 mls/hr Sodium Chloride (Saline Flush) 10 ml FLUSH ASDIRECTED PRN PRN Reason: Keep Vein Open Last Admin: 12/23/18 15:52 Dose: 10 ml Labs: Laboratory Tests 12/23/18 12/23/18 12/23/18 Range/Units 15:24 15:24 15:24 WBC 13.83 H (3.98-10.04) K/mm3 RBC 5.17 (3.98-5.22) M/mm3 Hgb 13.7 D (11.2-15.7) gm/dl Hct 40.9 (34.1-44.9) % MCV 79.1 L D (79.4-94.8) fl MCH 26.5 (25.6-32.2) pg MCHC 33.5 (32.2-35.5) g/dl RDW Std Deviation 53.3 H (36.4-46.3) fL Plt Count 289 D (182-369) K/mm3 MPV 10.0 (9.4-12.3) fl Neut % (Auto) 79.6 H (34.0-71.1) % Lymph % (Auto) 11.1 L (19.3-51.7) % [place] % (Auto) 9.0 (4.7-12.5) % Eos % (Auto) 0.1 L (0.7-5.8) Baso % (Auto) 0.2 (0.1-1.2) % Neut # (Auto) 11.00 H (1.56-6.13) K/mm3 Lymph # (Auto) 1.53 (1.18-3.74) K/mm3 [place] # (Auto) 1.25 H (0.24-0.36) K/mm3 Eos # (Auto) 0.02 L (0.04-0.36) K/mm3 Baso # (Auto) 0.03 (0.01-0.08) K/mm3 Manual Slide Review Sodium 139 (136-145) mEq/L Potassium 3.1 L (3.5-5.1) mEq/L Chloride 99 (98-107) mEq/L Carbon Dioxide 24 (21-32) mEq/L Anion Gap 19.1 H (5-15) BUN 6 L (7-18) mg/dL Creatinine 0.8 (0.55-1.02) mg/dL Est Cr Clr Drug Dosing 88.76 mL/min Estimated GFR (MDRD) > 60 (>60) mL/min BUN/Creatinine Ratio 7.5 L (14-18) Glucose 135 H (74-106) mg/dL Calcium 8.9 (8.5-10.1) mg/dL Total Bilirubin 0.9 (0.2-1.0) mg/dL AST 28 (15-37) U/L ALT 32 (14-59) U/L Alkaline Phosphatase 92 (46-116) U/L Total Protein 8.2 (6.4-8.2) g/dl Albumin 4.2 (3.4-5.0) g/dl Globulin 4.0 gm/dL Albumin/Globulin Ratio 1.1 (1-2) Lipase 58 L (73-393) U/L Ethyl Alcohol 0.00 (0.00) gm% Meds: Medications Generic Name Dose Route Start Last Admin Trade Name Freq PRN Reason Stop Dose Admin Sodium Chloride 1,000 mls @ 999 mls/hr 12/23/18 16:36 12/23/18 16:54 Normal Saline IV 12/23/18 17:36 999 mls/hr ONETIME ONE Administration Potassium Chloride 10 meq/ 100 mls @ 100 mls/hr 12/23/18 16:35 12/23/18 16:56 Premix IV 12/23/18 17:34 100 mls/hr ONETIME ONE Administration Sodium Chloride 10 ml 12/23/18 15:37 12/23/18 15:52 Saline Flush FLUSH 10 ml ASDIRECTED PRN Administration Keep Vein Open Discontinued Medications Generic Name Dose Route Start Last Admin Trade Name Reny PRN Reason Stop Dose Admin Sodium Chloride 1,000 mls @ 999 mls/hr 12/23/18 15:38 12/23/18 15:55 Normal Saline IV 12/23/18 16:38 999 mls/hr ONETIME ONE Administration Lorazepam 1 mg 12/23/18 15:41 12/23/18 15:50 Ativan IVPUSH 12/23/18 15:42 1 mg ONETIME ONE Administration Ondansetron HCl 4 mg 12/23/18 15:38 12/23/18 15:52 Zofran IVPUSH 12/23/18 15:39 4 mg ONETIME ONE Administration - Re-Assessments/Exams Free Text/Narrative Re-Assessment/Exam: 12/23/18 16:10 Patient resents to the ED for the evaluation of nausea, vomiting. Due to her alcohol history she is likely experiencing some sort of withdrawal type symptoms on top of things. I did order 1 mg Ativan, 4 mg Zofran, IV with some IV fluids, CBC, CMP, and blood alcohol level for initial management. As for the hematemesis, she could have an ulcer causing some of these issues. There was no active emesis happening in the room when I was in there, so I cannot attest how much blood she is actually vomiting up. 12/23/18 17:21 Patient was reassessed at bedside, she states that she is feeling better. I did discuss with her options regarding hospital admission, as she wishes to stop drinking. She thinks she will be able to do this by herself, and will follow-up at [facility] tomorrow for further management. I will provide her with some tablets of Zofran, and a prescription for Pepcid. After her IV fluids are done, she will be released from this ER. Patient was feeling better , and is eating a bowl of soup at this time. I stressed the importance and recommended that she consider staying for detox in the hospital, but she wished to go home and not be admitted. Departure - Departure Time of Disposition: 17:22 Disposition: Home, Self-Care 01 Condition: Fair Clinical Impression: Alcohol withdrawal Qualifiers: Complication of substance-induced condition: with unspecified complication Qualified Code(s): F10.239 - Alcohol dependence with withdrawal, unspecified - Discharge Information *PRESCRIPTION DRUG MONITORING PROGRAM REVIEWED*: No *COPY OF PRESCRIPTION DRUG MONITORING REPORT IN PATIENT YANIV: No Prescriptions: Famotidine [Acid Controller] 40 mg PO QPM #28 tablet Ondansetron [Zofran ODT] 4 mg PO Q8H PRN #12 tab.dis PRN Reason: Nausea Instructions: Alcohol Abuse and Nutrition, Alcohol Withdrawal Syndrome, Easy-to -Read Referrals: Marcela Naranjo, ORTHOPEDIC PHYSICIAN ASSISTANT [Primary Care Provider] - Forms: ED Department Discharge Additional Instructions: You were evaluated in the ER today regarding your nausea, and alcohol use. You were given some IV fluids, and IV potassium to correct your fluid and electrolyte status. You were given a prescription for Zofran, and antinausea medication, and Pepcid , an antacid, for outpatient use. Please take the Zofran 1 tab dissolvable under your tongue every 8 hours as needed for nausea, do not exceed 3 doses in a 24 hour time period. Please take the Pepcid, 40mg daily. Recommend that you follow up with [facility] human services tomorrow for help with quitting alcohol use, their telephone number is [phone], their emergency crisis number is [phone]. Please do so as early as you can tomorrow morning, recommend around 8 AM. You will likely have a rough couple next days quitting drinking by yourself, recommend that you get rid of all alcohol in the house, and do not put yourself in any situation where you will be tempted by alcohol. Please return to the ED if your symptoms should change or worsen. - My Orders Last 24 Hours: My Active Orders 12/23/18 15:37 Sodium Chloride 0.9% [Saline Flush] 10 ml FLUSH ASDIRECTED PRN Peripheral IV Insertion Adult [OM.PC] Stat 12/23/18 15:38 Peripheral IV Care [RC] . DIRECTED 12/23/18 16:35 Potassium Chloride [KCl 10 MEQ in Water 100 ML] 10 meq Premix Bag 1 bag IV ONETIME 12/23/18 16:36 Sodium Chloride 0.9% [Normal Saline] 1,000 ml IV ONETIME - Assessment/Plan Last 24 Hours: My Active Orders 12/23/18 15:37 Sodium Chloride 0.9% [Saline Flush] 10 ml FLUSH ASDIRECTED PRN Peripheral IV Insertion Adult [OM.PC] Stat 12/23/18 15:38 Peripheral IV Care [RC] . DIRECTED 12/23/18 16:35 Potassium Chloride [KCl 10 MEQ in Water 100 ML] 10 meq Premix Bag 1 bag IV ONETIME 12/23/18 16:36 Sodium Chloride 0.9% [Normal Saline] 1,000 ml IV ONETIME
[2018-12-23] MEDS ORDERED: Potassium Chloride 10 MEQ in Premix Bag 1 BAG IV ONE (16:35)
[2018-12-23 18:08] VITALS: BP 113/88; PULSE 90
== END 2018-12-23 18:05 | disposition home or self-care (01) ==
LOC: JD.ED 15:11
DX: F10.239 Alcohol dependence with withdrawal, unspecified (principal); F32.9 Major depressive disorder, single episode, unspecified; K21.9 Gastro-esophageal reflux disease without esophagitis; F17.210 Nicotine dependence, cigarettes, uncomplicated; Z79.899 Other long term (current) drug therapy
CPT/HCPCS: 36415; 80053; 80320; 83690; 85025; 96361; 96365; 96375; 99284; J2060; J2405; J3480; J7040; G0480

== ENCOUNTER 2020-12-02 09:33 | Emergency (ER) | payer BC ==
[2020-12-02 10:03] VITALS: BP 125/96; PULSE 95
--- NOTE | 2020-12-02 10:52 | CR ---
Right shoulder: 3 views of the right shoulder were obtained. Comparison: No prior shoulder study is available. Glenohumeral joint and acromioclavicular joint appear within normal limits. No fracture, dislocation or other bony abnormality is appreciated. No abnormal soft tissue calcifications are seen. Minimal thoracic scoliosis is noted. Impression: 1. Nothing acute is seen on right shoulder study. Diagnostic code #2
--- NOTE | 2020-12-02 11:05 | EDM.PDOC ---
ED HPI GENERAL MEDICAL PROBLEM - General Chief Complaint: Upper Extremity Injury/Pain Stated Complaint: R SHOULDER INJURY Time Seen by Provider: 12/02/20 10:13 Source of Information: Reports: Patient, RN Notes Reviewed - History of Present Illness INITIAL COMMENTS - FREE TEXT/NARRATIVE: 40 yr old female having R shoulder pain. This has been going on for about a week. She fell about a week ago. Pain is superior and post R shoulder, radiates down R arm, worse with motion. Pain does start R base of neck. Right Shoulder Pain Score (Numeric/FACES): 5 - Related Data Allergies Allergy/AdvReac Type Severity Reaction Status Date / Time No Known Allergies Allergy Verified 12/02/20 09:58 Home Meds: Home Meds Famotidine [Acid Controller] 40 mg PO QPM #28 tablet 12/23/18 [Rx] Ondansetron [Zofran ODT] 4 mg PO Q8H PRN #12 tab.dis 12/23/18 [Rx] Venlafaxine [Effexor] 37.5 mg PO DAILY 12/23/18 [History] hydrOXYzine HCL [Atarax] 25 mg PO DAILY 12/23/18 [History] Hydrocodone/Acetaminophen [HYDROcodone-Acetaminophen 5-325 MG] 1 each PO Q6HR PRN #10 tab 12/02/20 [Rx] Naproxen [Naprosyn] 500 mg PO Q12HR #14 tab 12/02/20 [Rx] predniSONE [Prednisone] 20 mg PO DAILY #6 tablet 12/02/20 [Rx] Past Medical History 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: Psychiatric History: Reports: Anxiety, Depression, Other (See Below) Hematologic History: Reports: Iron Deficiency Social & Family History - Family History Family Medical History: No Pertinent Family History - Tobacco Use Tobacco Use Status *Q: Current Every Day Tobacco User Years of Tobacco use: 7 Packs/Tins Daily: 1 - Caffeine Use Caffeine Use: Reports: None - Recreational Drug Use Recreational Drug Use: No - Living Situation & Occupation Living situation: Reports: Occupation: Unemployed Review of Systems - Review of Systems Review Of Systems: See Below Mouth/Throat: Reports: No Symptoms Respiratory: Reports: No Symptoms Cardiovascular: Denies: Chest Pain GI/Abdominal: Denies: Abdominal Pain, Nausea, Vomiting Musculoskeletal: Reports: Joint Pain. Denies: Neck Pain, Back Pain Skin: Reports: No Symptoms Neurological: Reports: No Symptoms ED EXAM, GENERAL - Physical Exam Exam: See Below General Appearance: Alert, No Apparent Distress Head: Atraumatic Neck: Supple Respiratory/Chest: No Respiratory Distress, Lungs Clear, Normal Breath Sounds Cardiovascular: Regular Rate, Rhythm Extremities: Other (mild tenderness superior and post R shoulder, pain with motion in all directions, no swelling, bruising, warmth or erythema) Neurological: Alert, Oriented, No Motor/Sensory Deficits Skin Exam: Warm, Dry, Normal Color, No Rash Course - Vital Signs Last Recorded V/S: Last Vital Signs Temp 98.2 F 12/02/20 09:58 Pulse 95 12/02/20 09:58 Resp 20 12/02/20 09:58 BP 125/96 H 12/02/20 09:58 Pulse Ox 97 12/02/20 09:58 - Orders/Labs/Meds Orders: Active Orders 24 hr Category Date Time Status Durable Medical Equipment for Discharge [DME for Oth 12/02/20 10:56 Ordered Discharge] [COMM] Stat - Re-Assessments/Exams Free Text/Narrative Re-Assessment/Exam: 12/03/20 07:05 X rays no fx Departure - Departure Time of Disposition: 11:05 Disposition: Home, Self-Care 01 Condition: Fair Clinical Impression: Cervical radiculopathy Shoulder contusion Qualifiers: Encounter type: initial encounter Laterality: right Qualified Code(s): S40.011A - Contusion of right shoulder, initial encounter - Discharge Information Prescriptions: Hydrocodone/Acetaminophen [HYDROcodone-Acetaminophen 5-325 MG] 1 each PO Q6HR PRN #10 tab PRN Reason: Pain (Mild 1-3) Naproxen [Naprosyn] 500 mg PO Q12HR #14 tab predniSONE [Prednisone] 20 mg PO DAILY #6 tablet Instructions: Contusion, [id number] Referrals: Mariajose Shepherd NP [Primary Care Provider] - Forms: ED Department Discharge Additional Instructions: Arm sling for the next 5 to7 days only. Be sure to keep moving the arm and shoulder 2 to 3 times a day so you do not get a stiff "frozen shoulder" Alternate ice and heat as needed. Naprosyn 500 mg twice daily for pain and inflammation. prednisone 20 mg daily for swelling and inflammation. Tylenol in addition 2 to 3 times daily or hydrocodone if needed for severe pain. Prescriptions have been sent to [facility]. See provider next week as planned. - My Orders Last 24 Hours: My Active Orders 12/02/20 10:56 Durable Medical Equipment for Discharge [DME for Discharge] [COMM] Stat - Assessment/Plan Last 24 Hours: My Active Orders 12/02/20 10:56 Durable Medical Equipment for Discharge [DME for Discharge] [COMM] Stat
== END 2020-12-02 11:30 | disposition home or self-care (01) ==
LOC: JD.ED 09:33
DX: S40.011A Contusion of right shoulder, initial encounter (principal); M54.12 Radiculopathy, cervical region; Z72.0 Tobacco use; W18.39XA Other fall on same level, initial encounter
CPT/HCPCS: 73030-26-RT; 73030-RT; 99283-25

== ENCOUNTER 2021-03-20 16:08 | Emergency (ER) | payer BC ==
[2021-03-20 16:45] VITALS: BP 139/99; PULSE 119
[2021-03-20] MEDS ORDERED: Sodium Chloride 0.9% 10 ML Syringe FLUSH PRN (17:41)
[2021-03-20] MEDS ORDERED: Ondansetron 4 MG/2 ML SDV IVPUSH ONE (17:41)
[2021-03-20] MEDS ORDERED: Sodium Chloride 0.9% 1,000 ML IV ONE ×2 (17:41→18:40)
[2021-03-20] MEDS ORDERED: HYDROmorphone 0.5 MG/0.5 ML Syringe IVPUSH ONE (17:41)
[2021-03-20] MEDS ORDERED: Potassium Chloride 10 MEQ in Premix Bag 1 BAG IV ONE (18:39)
[2021-03-20] MEDS ORDERED: Potassium Chloride 20 MEQ Tab.ER PO ONE (18:40)
[2021-03-20 18:45] LABS: CORONAVIRUS COVID-19 NAA NEGATIVE (NEGATIVE)
[2021-03-20] MEDS ORDERED: Sodium Chloride 0.9% 500 ML ONE (21:21)
[2021-03-20] MEDS: Potassium Chloride 10 MEQ in Premix Bag 1 BAG IV SCH ×3 (21:26→23:36)
== END 2021-03-21 00:48 | disposition home or self-care (01) ==
LOC: JD.ED 16:08
DX: M54.16 Radiculopathy, lumbar region (principal); K21.9 Gastro-esophageal reflux disease without esophagitis; Z79.899 Other long term (current) drug therapy; Z20.822 Contact with and (suspected) exposure to COVID-19
CPT/HCPCS: 0240U; 36415; 80053; 83735; 85025; 96365; 96366; 96375; 99284; A9270; J1170; J2405; J3480; J7030; J7040; 99283